=== PATIENT | male | born 1985 | race Caucasian/White ===

== ENCOUNTER 2016-12-05 01:50 | Inpatient (IN) | payer BC, OTHER ==
[~2016-12-05] VITALS: Ht 180.3 cm; Wt 61.2 kg
[~2016-12-05 01:50] MED LIST: OMEP40CA37 PO
[2016-12-05 02:45] VITALS: BP 111/65
--- NOTE | 2016-12-05 02:45 | NUR ---
ADMISSION Patient is a 31-year old, male, admitted and escorted by [facility] at 0236 to unit. Patient lives in an apartment by himself in [place]. Skin check done, no open skin noted. No edema noted. Pt is ambulatory with steady gait. Pt stands 5'11" and weighs 135 pounds per standing scale. Vital signs are as follows: BP-111/65, T-97.5, P-94, RR-18 and SPO2 on RA=97%. Patient is AAOx4 and with no anxiety noted at this time. Lung sounds clear bilaterally upon auscultation. No cough noted and bowel sounds are present on all quadrants. PERRLA and pupils are 1 mm upon visual check. Pt reports being allergic to Alcohol, on Regular Diet and is Full Code. Pt denies any seizure history. Per pt, withdrawal symptoms are nausea and vomiting, runny nose, sweats, chills, tremors, anxiety, depression, goosebumps and restless legs. Substance history as follows: 1) Heroin: Per pt, started since 2012 and since 10/15/2016 was using 1 gm via smoke daily. Last use was 12/04/2016 at 2200, 1 gm smoked. 2) Xanax: Per pt, started at age 18 and for the past 2 weeks was using 4 gms PO daily on average, last use was on 12/04/2016 11 am. 3) Crystal Methamphetamine: Per pt, started since 2015 and since 10/15/2016 was using 0.5 gm via smoke daily. Last use was 12/04/2016 10 pm. 4) Roxycodone: Per pt, since his relapse last 10/15/2016, he was taking about 30 mg daily and stopped on 10/27/2016. 5) THC: Per pt, started at age 15 and since 10/15/2016 has been intermittently smoking "couple of hits here and there". Last use was 12/04/2016 5pm--"a couple of hits". Patient informed PMHx of Anxiety, ADHD (diagnosed last year but does not take meds). Right Torn Lateral Meniscus (2004), Right Foot Fracture (2014) and GERD. No history of suicide. No Suicidal Ideation nor Homicidal Ideation at this time. PCP is Dr. Carrion and Psychiatrist is Dr. Mcnally. Sponsor's name is Aayush Falk. Home medications mentioned were reconciled. Treatment history as follows: 1) [facility] 02/29/2016 to 03/24/2016 2) [facility] 02/20/2016 to 02/29/2016 3) [facility] in [place] 03/2014 Longest period of sobriety was 19 months, from 04/2014 to 11/2015. Patient reports smoking cigarettes about 20 cigarette sticks daily. Oriented patient to room and instructed with the use of the call light, placed within reach. Fall, universal, seizure and safety precautions implemented. Kept patient warm, dry and comfortable. No c/o significant pain at this time All needs met. Patient refused Pneumonia vaccines despite explanation of risks and benefits. Out of season for Flu season. COWS=2, CIWA=1. Will continue to monitor.
[2016-12-05 04:00] VITALS: BP 115/63
[2016-12-05] MEDS ORDERED: QUET50TA PO (04:03)
[2016-12-05] MEDS ORDERED: QUET100T PO (04:03)
[2016-12-05] MEDS ORDERED: MAG HYDROX/AL HYDROX/SIMETH 30 ML LIQUID UDC PO PRN (04:45)
[2016-12-05] MEDS ORDERED: ACETAMINOPHEN 325 MG TABLET PO PRN (04:45)
[2016-12-05] MEDS ORDERED: MIRALAX 17 GM POWD.PACK PO PRN (04:45)
[2016-12-05] MEDS ORDERED: DICYCLOMINE HCL 20 MG TABLET PO PRN (04:45)
[2016-12-05] MEDS ORDERED: BUPRENORPHINE HCL 2 MG TAB.SUBL SL PRN (04:45)
[2016-12-05] MEDS ORDERED: MAGNESIUM HYDROXIDE 30 ML LIQUID UDC PO PRN (04:45)
[2016-12-05] MEDS ORDERED: ONDANSETRON ODT 4 MG TAB.RAPDIS SL PRN (04:45)
[2016-12-05] MEDS ORDERED: IBUPROFEN 400 MG TABLET PO PRN (04:45)
[2016-12-05] MEDS ORDERED: diphenhydrAMINE 50 MG CAPSULE PO PRN (04:45)
[2016-12-05] MEDS ORDERED: LORAZEPAM 2 MG/1 ML VIAL IM PRN (04:45)
[2016-12-05] MEDS ORDERED: LOPERAMIDE HCL 2 MG CAPSULE PO PRN ×2 (04:45)
[2016-12-05] MEDS ORDERED: ONDANSETRON 4 MG/2 ML VIAL IM PRN (04:45)
[2016-12-05] MEDS ORDERED: DIAZEPAM 5 MG TABLET PO PRN (04:45)
[2016-12-05] MEDS ORDERED: HYDROXYZINE PAMOATE 25 MG CAPSULE PO PRN (04:45)
[2016-12-05] MEDS ORDERED: DIAZEPAM 10 MG TABLET PO PRN ×2 (04:45)
--- NOTE | 2016-12-05 07:10 | NUR ---
End of Shift Patient is a 31-year old, male, admitted for Heroin and Xanax Dependence. With PMHx of Anxiety, GERD, ADHD, Right Lateral Torn Meniscus and Right Foot Fracture. Pt with allergy to ETOH, on Regular Diet and is Full Code. Pt is AAOx4, no anxiety noted and with no SOB observed. Pt is ambulatory with steady gait and with intact skin. Fall, universal and safety prec in place. Call light within reach. Kept pt warm, dry and comfortable. All needs met. Latest COWS=2, CIWA=1, haven't slept since admission earlier. Urine not provided yet as pt does not feel the urge to urinate at this time. Endorsed to AM shift nurse for continuity of care.
--- NOTE | 2016-12-05 07:37 | NUR ---
BEGINNING OF SHIFT Patient endorsement report received from sports fitness and wellness director nurse, all pertinent information discussed. Patient with admitting Dx: opiate/bzo Dependence Patient admitted on 12/05/2016 and currently with no ongoing taper will be under observation. Patient slept for 0 hours, with last ciwa score of: 1 and last cow score of: 2. Patient received no PRNs during sports fitness and wellness director. Pending urine drug screen. Fall and seizure precautions observed at all times. Patient received awake, alert and oriented x4, educated regarding plan of care for the day with good verbal understanding. will continue to monitor closely. safety measures in place. call light with in reach.
[2016-12-05 08:04] LABS: THYROID STIMULATING HORMONE 2.742 mIU/mL (0.358-3.740)
[2016-12-05 08:06] LABS: ETHANOL < 3 MG/DL (0-0)
[2016-12-05 08:27] VITALS: BP 102/63
[2016-12-05 08:29] LABS: BASOPHILS # (AUTO) 0.1 K/uL (0.0-8.0); BASOPHILS % (AUTO) 0.5 % (0.0-2.0); EOSINOPHILS # (AUTO) 0.3 K/uL (0.0-0.7); EOSINOPHILS % (AUTO) 2.7 % (0.0-7.0); HEMATOCRIT 48.5 % (36.7-47.1); HEMOGLOBIN 16.3 g/dL (12.5-16.3); LYMPHOCYTES # (AUTO) 3.6 K/uL (20.0-40.0); LYMPHOCYTES % (AUTO) 33.1 % (20.5-51.5); MEAN CORPUSCULAR HEMOGLOBIN 31.2 uug (23.8-33.4); MEAN CORPUSCULAR HGB CONC 34 g/dL (32.5-36.3); MEAN CORPUSCULAR VOLUME 92.4 fL (73.0-96.2); MONOCYTES # (AUTO) 1.1 K/uL (2.0-10.0); NEUTROPHILS # (AUTO) 5.9 K/uL (1.8-8.9); NEUTROPHILS % (AUTO) 53.7 % (38.5-71.5); PLATELET COUNT (AUTO) 179 K/uL (152-348); RED BLOOD CELL COUNT(AUTO) 5.24 MIL/uL (4.06-5.63); RED CELL DISTRIBUTION WIDTH 12.3 % (12.1-16.2)
[2016-12-05] MEDS: MULTIVITAMINS,THERAPEUTIC TABLET PO SCH (08:30)
[2016-12-05 08:35] LABS: ALANINE AMINOTRANSFERASE 27 U/L (16-63); ALBUMIN 4.7 g/dL (3.4-5.0); ALKALINE PHOSPHATASE 66 U/L (50-136); AMYLASE 25 U/L (25-115); ASPARTATE AMINOTRANSFERASE 29 U/L (15-37); BILIRUBIN,TOTAL 0.8 mg/dL (0.2-1.0); CALCIUM 9.6 mg/dL (8.5-10.1); CHLORIDE 97 mmol/L (98-107); CREATININE 1.3 mg/dL (0.6-1.3); GFR 64 mL/min (>60); GLUCOSE 117 mg/dL (74-106); LIPASE 134 U/L (73-393); MAGNESIUM 2.1 mg/dL (1.8-2.4); SODIUM SERUM 140 mmol/L (136-145); TOTAL PROTEIN, SERUM 7.9 g/dL (6.4-8.2); UREA NITROGEN, BLOOD 18 mg/dL (7-18)
[2016-12-05 08:39] LABS: CARBON DIOXIDE 34 mmol/L (21-32)
[2016-12-05] MEDS ORDERED: TUBERCULIN,PURIF.PROT.DERIV. 5 TU/0.1 ML TEST ID ONE (09:00)
[2016-12-05 09:08] LABS: HIV-1 p24 ANTIGEN NON REACTIVE (NONREACTIVE); HIV-1/2 ANTIBODY NON REACTIVE (NONREACTIVE)
[2016-12-05 09:21] LABS: *AMPHETAMINE, URINE POSITIVE (NEGATIVE); *BARBITURATE, URINE NEGATIVE (NEGATIVE); *CANNABINOID, URINE POSITIVE (NEGATIVE); *COCCAINE, URINE NEGATIVE (NEGATIVE); *OPIATE, URINE POSITIVE (NEGATIVE); *PHENCYCLIDINE SCREEN,URINE NEGATIVE (NEGATIVE)
[2016-12-05] MEDS ORDERED: LORAZEPAM 1 MG TABLET PO PRN ×2 (10:00)
[2016-12-05] MEDS: PATIENT MAY USE OWN MED- MD OK PO SCH (12:49)
[2016-12-05 13:39] VITALS: BP 124/72
[2016-12-05 16:00] VITALS: BP 100/53
--- NOTE | 2016-12-05 18:57 | NUR ---
END OF SHIFT Patient with admitting Dx: opiate/BZO dependance and has PRN medications for s/sx of withdrawal continues under close observation. Patient encouraged adequate PO fluid intake as tolerated. 0900 patient presented with heart rate of 108, difficulty sitting still, irritability, and anxiety with cow score of: 5 and ciwa score of: 4. 1300 assessment patient presented with: heart rate of: 97, difficulty sitting still, irritable, and anxiety with cow score of: 4 and ciwa score of: 4. 1700 assessment patient presented with: Heart rate of 96, difficulty sitting still, irritable, and anxiety with cow score of: 4 and ciwa score of: 4. Patient encouraged to attend group therapies/sessions to learn new coping skills to prevent relapse, patient denies SI/HI. Administered no PRNs during shift. Safety measures in place. call light kept with in reach. Patient endorsed to rn night nurse, all pertinent information discussed.
--- NOTE | 2016-12-05 19:55 | NUR ---
START OF SHIFT Received report from day shift nurse. Pt is lying in bed watching TV. He is a 31 yo male admitted to [facility] today for heroin and BZD dependence. Allergies to alcohol, A&O x4 and ambulatory. Pt is full code status and on a regular diet. He has a PMH of anxiety, GERD, ADHD, right torn lateral meniscus, and right foot fracture. On admission he admitted to using heroin 1 gram per day for 7 weeks, roxycodone 30mg per day, Xanax 4mg per day, crystal meth 0.5 grams per day. He reports nausea, body aches, anxiety, and sweating. His skin is moist to the touch. PRN medications available for management of withdrawal symptoms. Fall precautions in place. Bed is down with call light in reach.
[2016-12-05] MEDS: METHOCARBAMOL 750 MG TABLET PO PRN (19:59)
[2016-12-05 20:00] VITALS: BP 103/64
--- NOTE | 2016-12-05 20:00 | NUR ---
PRN Ativan, Robaxin, and Zofran Pt c/o sweating, body aches, anxiety, and nausea. COWS 8 and CIWA 7. PRN Ativan, Robaxin, and Zofran administered.
--- NOTE | 2016-12-05 21:00 | NUR ---
PRN Ativan, Robaxin, and Zofran reassessment PRN Ativan, Robaxin, and Zofran effective. Pt reports feeling more relaxed. Body aches and nausea have subsided. Addendum: 12/05/16 at 2350 by ESTEPHANIA SINGH RN COWS 3 and LITTLEWA 3.
[2016-12-05] MEDS: QUETIAPINE FUMARATE 100 MG TABLET PO PRN (21:44)
--- NOTE | 2016-12-05 21:45 | NUR ---
PRN Seroquel administration Pt c/o inability to sleep. PRN Seroquel administered.
--- NOTE | 2016-12-05 22:45 | NUR ---
PRN Seroquel reassessment PRN Seroquel effective. Pt is lying in bed resting with eyes closed. Respirations even and unlabored. Safety measures in place.
[2016-12-06] VITALS: BP 97/54
[2016-12-06 04:00] VITALS: BP 102/48
--- NOTE | 2016-12-06 07:10 | NUR ---
Start of Shift Report from the night nurse: pt is 31 y/o male here for Opiate dependence r/t Heroin 1gram smoked/d for 7 weeks Roxicodone 30mg PO daily for 2 weeks, Benzo r/t Xanax 4mg Po for 2 weeks, Methamphetamine 0.5mg smoked for 7 weeks, Marijuana intermittently; PRN Ativan and PRN Subutex ordered, no taper ordered. Pt is a full code, regular diet, NKF ro NKA pt states he's allergic to alcohol, fall seizure precautions ordered. HHx: Anxiety, GERD, ADHD, Torn Lateral Minces, Right foot fx 2014, multiple relapses. V/S stable Skin is intact. PRN Ativan, Robaxin, Zofran and Seroquel given last night. No new orders, labs or recommendations. Last CIWA 1. Pt is asleep in room. Will cont. to monitor the pt.
--- NOTE | 2016-12-06 07:20 | NUR ---
END OF SHIFT Report provided to day shift nurse. Pt is lying in bed resting. He is a 31 yo male admitted to [facility] today for heroin and BZD dependence. He is A&O x4 and ambulatory. NKA, full code status, and on a regular diet. He has a PMH of anxiety, GERD, ADHD, right torn lateral meniscus, and right foot fracture. On admission he admitted to using heroin 1 gram per day for 7 weeks, roxycodone 30mg per day, Xanax 4mg per day, crystal meth 0.5 grams per day. He reports nausea, body aches, anxiety, and sweating. His skin is moist to the touch. PRN medications available for management of withdrawal symptoms. PRN Ativan, Robaxin, Zofran, and Seroquel administered. Last COWS 1 and CIWA 1. He drank 500mL and slept 9 hours. Fall precautions in place. Bed is down with call light in reach.
[2016-12-06 08:00] VITALS: BP 99/53
[2016-12-06] MEDS: MULTIVITAMINS,THERAPEUTIC TABLET PO SCH (09:52)
[2016-12-06] MEDS: PATIENT MAY USE OWN MED- MD OK PO SCH (09:52)
--- NOTE | 2016-12-06 10:00 | NUR ---
PRN Medication Administration Pt is in room resting in bed with anxiety, restless legs, pt c/o muscle tension with discomfort and that he has not had a BM in 2 days, COWS 3 CIWA 3; PRN Miralax, Robaxin 750mg and Vistaril 25mg given as ordered. Will reassess in 1H.
[2016-12-06] MEDS: HYDROXYZINE PAMOATE 25 MG CAPSULE PO PRN ×2 (10:01→17:19)
[2016-12-06] MEDS: METHOCARBAMOL 750 MG TABLET PO PRN (10:01)
[2016-12-06 11:09] LABS: HCV AB <0.1 s/co ratio (0.0-0.9); HEPATITIS B CORE AB, IgM Negative (Negative); HEPATITIS B SURFACE AG Negative (Negative)
[2016-12-06 12:00] VITALS: BP 102/62
--- NOTE | 2016-12-06 12:20 | NUR ---
Reassessment Pt is in room resting and watching T.V. no anxiety or restless feet present and pt denies muscle tension; Vistaril and Robaxin are effective. Will cont. to monitor the pt.
[2016-12-06 14:40] LABS: *AMPHETAMINE, URINE POSITIVE (NEGATIVE); *BARBITURATE, URINE NEGATIVE (NEGATIVE); *CANNABINOID, URINE NEGATIVE (NEGATIVE); *COCCAINE, URINE NEGATIVE (NEGATIVE); *OPIATE, URINE POSITIVE (NEGATIVE); *PHENCYCLIDINE SCREEN,URINE NEGATIVE (NEGATIVE)
[2016-12-06 16:00] VITALS: BP 132/73
[2016-12-06] MEDS ORDERED: DIPH50CA37 PO (17:02)
[2016-12-06] MEDS ORDERED: METH-33 PO (17:02)
[2016-12-06] MEDS ORDERED: Ibuprofen PO (17:02)
[2016-12-06] MEDS ORDERED: DICY20TA28 PO (17:02)
[2016-12-06] MEDS: CLONIDINE HCL 0.1 MG TABLET PO PRN (17:20)
--- NOTE | 2016-12-06 17:20 | NUR ---
PRN Medication Administration Pt is in hallway pacing and anxious, I redirected the pt rest on edge of bed and assess V/S with HR 110-118, BP Stable at 132/73; PRN Vistaril 25mg and PRN Clonidine 0.1mg given as ordered. Will reassess in 1H after dinner.
--- NOTE | 2016-12-06 18:20 | NUR ---
Reassessment Pt returned from smoking break and states that his anxiety has decreases, with manual HR 98; Vistaril and Clonidine are effective for anxiety. Will cont. to monitor the pt.
--- NOTE | 2016-12-06 18:52 | NUR ---
Start of Shift Report from the night nurse: pt is 31 y/o male here for Opiate dependence r/t Heroin 1gram smoked/d for 7 weeks Roxicodone 30mg PO daily for 2 weeks, Benzo r/t Xanax 4mg Po for 2 weeks, Methamphetamine 0.5mg smoked for 7 weeks, Marijuana intermittently; PRN Ativan and PRN Subutex ordered, no taper ordered. Pt is a full code, regular diet, NKF or NKA pt states he's allergic to alcohol, fall seizure precautions ordered. HHx: Anxiety, GERD, ADHD, Torn Lateral Minces, Right foot fx 2014, multiple relapses. V/S stable Skin is intact. New orders for pt to get d/c'd tomorrow with UDS results of positive opiates so endorsed to night nurse to get another sample. No PRN Ativan given. PRN Vistaril given twice with last dose at 1720pm & Robaxin 1000am. Pt denies chest pain and no SOB notes. No hallucinations, delusions or suicidal ideations noted. Pt did not attend group therapy during my shift. Last COWS 1 CIWA 1. Addendum: 12/06/16 at 1900 by FELIX ARAGON RN ERROR END OF SHIFT.
--- NOTE | 2016-12-06 19:00 | NUR ---
End of Shift Report to the night nurse: pt is 31 y/o male here for Opiate dependence r/t Heroin 1gram smoked/d for 7 weeks Roxicodone 30mg PO daily for 2 weeks, Benzo r/t Xanax 4mg Po for 2 weeks, Methamphetamine 0.5mg smoked for 7 weeks, Marijuana intermittently; PRN Ativan and PRN Subutex ordered, no taper ordered. Pt is a full code, regular diet, NKF or NKA pt states he's allergic to alcohol, fall seizure precautions ordered. HHx: Anxiety, GERD, ADHD, Torn Lateral Minces, Right foot fx 2014, multiple relapses. V/S stable Skin is intact. New orders for pt to get d/c'd tomorrow with UDS results of positive opiates so endorsed to night nurse to get another sample. No PRN Ativan given. PRN Vistaril given twice with last dose at 1720pm & Robaxin 1000am. Pt denies chest pain and no SOB notes. No hallucinations, delusions or suicidal ideations noted. Pt did not attend group therapy during my shift. Last COWS 1 CIWA 1.
--- NOTE | 2016-12-06 19:55 | NUR ---
START OF SHIFT 312 Received report from day shift nurse. Pt is in his room resting. He is a 31 yo male admitted to [facility] on 12/05 for heroin and BZD dependence. He is A&O x4 and ambulatory. Allergic to alcohol, full code status and on a regular diet. He has a PMH of anxiety, GERD, ADHD, right torn lateral meniscus, and right foot fracture. On admission he admitted to using heroin 1 gram per day for 7 weeks, roxycodone 30mg per day, Xanax 4mg per day, crystal meth 0.5 grams per day. He reports feeling anxious and restless. Minimal other s/s withdrawal. PRN medications available for management of withdrawal symptoms and he is scheduled for discharge tomorrow. Fall precautions in place. Bed is down with call light in reach.
[2016-12-06 20:00] VITALS: BP 128/68
[2016-12-06] MEDS ORDERED: HYDROXYZINE PAMOATE 25 MG CAPSULE PO ONE (20:30)
[2016-12-06] MEDS ORDERED: HYDROXYZINE PAMOATE 25 MG CAPSULE PO PRN (20:30)
[2016-12-06] MEDS: QUETIAPINE FUMARATE 100 MG TABLET PO PRN (21:01)
--- NOTE | 2016-12-06 21:02 | NUR ---
MD Communication/One time Vistaril Pt reports continued anxiety. Contacted Dr. Jaquez. Orders received and carried out for one time vistaril. Addendum: 12/07/16 at 0154 by ESTEPHANIA SINGH RN Pt. reported inability to sleep. DOMINIK Fairchild administered.
--- NOTE | 2016-12-06 22:02 | NUR ---
One time Vistaril and PRN Seroquel reassessment Pt reports feeling somewhat more relaxed but has not yet fallen asleep. No new medications requested. Encouraged relaxation.
[2016-12-06 23:04] LABS: *AMPHETAMINE, URINE POSITIVE (NEGATIVE); *BARBITURATE, URINE NEGATIVE (NEGATIVE); *CANNABINOID, URINE NEGATIVE (NEGATIVE); *COCCAINE, URINE NEGATIVE (NEGATIVE); *OPIATE, URINE POSITIVE (NEGATIVE); *PHENCYCLIDINE SCREEN,URINE NEGATIVE (NEGATIVE)
[2016-12-07] VITALS: BP 124/73
[2016-12-07] MEDS: METHOCARBAMOL 750 MG TABLET PO PRN (00:27)
[2016-12-07] MEDS: CLONIDINE HCL 0.1 MG TABLET PO PRN (00:28)
--- NOTE | 2016-12-07 00:30 | NUR ---
PRN Clonidine, Robaxin, and Benadryl Pt reports he has been unable to sleep. He is anxious and has body aches.B/P 124/71 and HR 114. COWS 5 and CIWA 4. PRN Clonidine, Robaxin, and Benadryl administered.
[2016-12-07 01:25] VITALS: BP 112/64
--- NOTE | 2016-12-07 01:30 | NUR ---
PRN Clonidine, Robaxin, and Benadryl reassessment PRN Clonidine, Robaxin, and Benadryl effective. Pt is lying in bed resting with eyes closed. Vitals rechecked. B/P 112/64 and HR 68.
--- NOTE | 2016-12-07 04:00 | NUR ---
0400 Vital signs refused. COWS and CIWA deferred. Pt refused to be woken for 0400 vitals. Respirations even and unlabored. Bed is down with call light in reach. COWS and CIWA are ordered Q4HWA.
--- NOTE | 2016-12-07 07:10 | NUR ---
Start of Shift Report from the night nurse: pt is 31 y/o male here for Opiate dependence r/t Heroin 1gram smoked/d for 7 weeks Roxicodone 30mg PO daily for 2 weeks, Benzo r/t Xanax 4mg Po for 2 weeks, Methamphetamine 0.5mg smoked for 7 weeks, Marijuana intermittently; PRN Ativan and PRN Subutex ordered, no taper ordered. Pt is a full code, regular diet, NKF ro NKA pt states he's allergic to alcohol, fall seizure precautions ordered. HHx: Anxiety, GERD, ADHD, Torn Lateral Minces, Right foot fx 2014, multiple relapses. V/S stable Skin is intact. PRN Vistaril, Robaxin, Benadryl and Clonidine given last night. Pt is to be d/c'd home today with last urine obtained last night has evidence of opiates present. Last COWS 2 CIWA 1. Pt is awake in room. Will cont. to monitor the pt.
--- NOTE | 2016-12-07 07:15 | NUR ---
END OF SHIFT Report provided to day shift nurse. Pt is lying in bed resting. He is a 31 yo male admitted to [facility] on 12/05 for heroin and BZD dependence. He is A&O x4 and ambulatory. Allergic to alcohol, full code status and on a regular diet. He has a PMH of anxiety, GERD, ADHD, right torn lateral meniscus, and right foot fracture. On admission he admitted to using heroin 1 gram per day for 7 weeks, roxycodone 30mg per day, Xanax 4mg per day, crystal meth 0.5 grams per day. Pt is ordered PRN medications only and is scheduled for discharge today. Pt had anxiety and difficulty falling asleep. PRN Seroquel, Clonidine, Robaxin, Benadryl, and one time Vistaril administered. Last COWS 2 and CIWA 1. He drank 1096mL and slept for 6 hours. Fall precautions in place. Bed is down with call light in reach.
[2016-12-07] MEDS: MULTIVITAMINS,THERAPEUTIC TABLET PO SCH (08:55)
[2016-12-07] MEDS: PATIENT MAY USE OWN MED- MD OK PO SCH (08:55)
--- NOTE | 2016-12-07 09:08 | NUR ---
Discharge Pt is A&O x 4, ambulatory independently. Features symmetrical, PERRLA 3mm, no dizziness, N/V or LEMUS present. Pt denies chest pain. No SOB present. V/S stable. Skin is intact. No w/d s/sx noted. Pt is given his belongings, d/c summary packed, home medications, and written prescription. Pt is chaperoned to lobby with a tech to the [employer] transportation with destination to home as planned.
== END 2016-12-07 09:08 | disposition home or self-care (01) | DRG 895 ==
LOC: SRC 01:50
PROVIDERS: ADMIT Internal Medicine; ATTEND Internal Medicine
PROC: HZ2ZZZZ Detoxification Services for Substance Abuse Treatment (ICD-10-PCS; principal; 2016-12-05)
PROC: HZ31ZZZ Individual Counseling for Substance Abuse Treatment, Behavioral (ICD-10-PCS; 2016-12-06)
DX: F11.23 Opioid dependence with withdrawal (principal); E87.3 Alkalosis; F15.20 Other stimulant dependence, uncomplicated; E86.0 Dehydration; Z81.3 Family history of other psychoactive substance abuse and dependence; G47.00 Insomnia, unspecified; F17.210 Nicotine dependence, cigarettes, uncomplicated; F12.10 Cannabis abuse, uncomplicated; F41.9 Anxiety disorder, unspecified; F90.9 Attention-deficit hyperactivity disorder, unspecified type; F39 Unspecified mood [affective] disorder; K21.9 Gastro-esophageal reflux disease without esophagitis; D72.823 Leukemoid reaction; Z79.899 Other long term (current) drug therapy
CPT/HCPCS: 36415; 80307; 80324; 80346; 80349; 80361; 83690; 83735; 84443; 85025; 86580; 86592; 86705; 86803; 87340; 87806; A4663; G6040-TC; Q0162; Q0163

== ENCOUNTER 2017-01-04 19:26 | Inpatient (IN) | payer BC, OTHER ==
[~2017-01-04] VITALS: Ht 180.3 cm; Wt 64.0 kg
[~2017-01-04 19:26] MED LIST changes: +DICY20TA28 PO; +DIPH50CA37 PO; +Ibuprofen PO; +METH-33 PO; +QUET100T PO
[2017-01-05 01:12] LABS: *AMPHETAMINE, URINE POSITIVE (NEGATIVE); *BARBITURATE, URINE NEGATIVE (NEGATIVE); *CANNABINOID, URINE NEGATIVE (NEGATIVE); *COCCAINE, URINE NEGATIVE (NEGATIVE); *OPIATE, URINE POSITIVE (NEGATIVE); *PHENCYCLIDINE SCREEN,URINE NEGATIVE (NEGATIVE)
[2017-01-05 01:17] VITALS: BP 113/81
--- NOTE | 2017-01-05 01:17 | NUR ---
Pre-Admission Note: Patient assessed in intake office at 01:17 on 01/05/2017. Patient is ambulatory with steady gait, stable, A&OX4, speech is clear. Patient states that he is here to safely detox from heroin and methamphetamine. Pt reports smoking 1gm heroin and 1gm methamphetamine daily for one month, after discharging from [facility] the first week in 12/2016. Patient states that last use was on 01/04/17. VS: 113/81, 106, 98.1, 16, 96% Spo2 on RA. Patient reports 3/10 in right ribs pain at this time, r/t fall. Patient reports NKDA/NKFA. Patient instructed on unit protocol of vitals Q4H and COWS/CIWA assessments. Patient verbalized understanding and agreement. Patient also instructed on policy regarding destruction of any controlled substances/prescriptions brought to facility, and handling of all medications. Patient verbalized understanding and agreement. Will complete admission assessment when patient is brought up to unit.
--- NOTE | 2017-01-05 01:27 | NUR ---
ADMISSION NOTE: NEW ADMISSION IS A 31 YO MALE ON THE [facility] FLOOR AT 01:27 ON 01/05/17; PRE-ADMISSION ASSESSMENT COMPLETED IN INTAKE OFFICE. UDS SPECIMEN COLLECTED IN INTAKE, RESULTED POSITIVE FOR OPIATES AND AMPHETAMINES. VS: 113/81, 106, 98.1, 16, 96% SPO2 ON RA. COWS IS 3: INCREASED HR AND RESTLESSNESS. HEIGHT IS 5'11" AND WEIGHT BY BED SCALE IS 141 LBS. PT REPORTS NKDA/NKFA. PT REPORTS PCP IS DR CORCORAN AND PSYCHIATRIST IS DR BELL. PT ADMITTED UNDER THE CARE OF DR CRYSTAL. PT REPORTS THE FOLLOWING SUBSTANCE USE: HEROIN: PT REPORTS SMOKING 1GM DAILY FOR ONE MONTH CURRENTLY. PT REPORTS FIRST USING HEROIN 4 YEARS AGO. LAST USE WAS 0.5GM AT 23:00 ON 01/04/17. METHAMPHETAMINE: PT REPORTS SMOKING 1GM DAILY FOR ONE MONTH CURRENTLY. PT REPORTS FIRST USING METHAMPHETAMINE ONE YEAR AGO. LAST USE WAS 0.5GM AT 12:00 ON 01/04/17. XANAX: PT REPORTS TAKING 1MG XANAX 4-5 TIMES IN THE PAST MONTH. PT REPORTS FIRST TAKING XANAX 13 YEARS AGO. LAST USE WAS 1MG TWO WEEKS AGO. PT REPORTS SMOKING 20 CIGARETTES DAILY. WRITTEN SMOKING CESSATION EDUCATION PROVIDED. PT VERBALIZES UNDERSTANDING. PT REPORTS ADMISSION TO TREATMENT/DETOX: [facility] IN DECEMBER 2016 FOR ONE WEEK; [facility] IN MARCH 2016 FOR ONE MONTH; [facility] IN FEBRUARY 2016 FOR ONE WEEK; [facility] IN MARCH 2014 FOR ONE WEEK. PT REPORTS PMHX OF LEFT RIB INJURY (CURRENT) R/T FALL, ANXIETY, ADHD, GERD, TORN RIGHT LATERAL MENISCUS (2004), RIGHT FOOT FX (2014). HOME MEDICATIONS HAVE BEEN RECONCILED: PT REPORTS TAKING SEROQUEL 100MG HS AND OMEPRAZOLE 40MG QAM BUT DID NOT BRING RX BOTTLES. PT IS AMBULATORY WITH STEADY GAIT. A&OX4. SKIN ASSESSMENT: INTACT. PT DENIES CURRENT OR HX OF SI/HI. LUNGS ARE CTA THROUGHOUT, RESPIRATIONS ARE EVEN AND UNLABORED BUT SHALLOW D/T INJURY TO LEFT RIBS. PT DENIES COUGH; LUNGS CTA. HEART SOUNDS REGULAR. BOWEL SOUNDS ACTIVE IN ALL QUADRANTS; PT REPORTS CONSTIPATION AND LAST BM OVER 3 DAYS PRIOR TO ADMISSION. ABDOMEN IS SOFT, NON-DISTENDED, NON-TENDER.
[2017-01-05] MEDS ORDERED: MIRALAX 17 GM POWD.PACK PO PRN (01:30)
[2017-01-05] MEDS ORDERED: ONDANSETRON ODT 4 MG TAB.RAPDIS SL PRN (01:30)
[2017-01-05] MEDS ORDERED: MAG HYDROX/AL HYDROX/SIMETH 30 ML LIQUID UDC PO PRN (01:30)
[2017-01-05] MEDS ORDERED: diphenhydrAMINE 50 MG CAPSULE PO PRN (01:30)
[2017-01-05] MEDS ORDERED: DICYCLOMINE HCL 20 MG TABLET PO PRN (01:30)
[2017-01-05] MEDS ORDERED: ONDANSETRON 4 MG/2 ML VIAL IM PRN (01:30)
[2017-01-05] MEDS ORDERED: MAGNESIUM HYDROXIDE 30 ML LIQUID UDC PO PRN (01:30)
[2017-01-05] MEDS ORDERED: ACETAMINOPHEN 325 MG TABLET PO PRN (01:30)
[2017-01-05] MEDS ORDERED: LOPERAMIDE HCL 2 MG CAPSULE PO PRN ×2 (01:30)
[2017-01-05] MEDS ORDERED: TRAZODONE 50 MG TABLET PO ONE (02:00)
[2017-01-05 02:07] LABS: BASOPHILS # (AUTO) 0.1 K/uL (0.0-8.0); BASOPHILS % (AUTO) 0.9 % (0.0-2.0); EOSINOPHILS # (AUTO) 0.1 K/uL (0.0-0.7); EOSINOPHILS % (AUTO) 1.8 % (0.0-7.0); HEMATOCRIT 43.3 % (40-50); HEMOGLOBIN 14.8 G/DL (14.0-18.0); LYMPHOCYTES # (AUTO) 1.7 K/UL (0.8-4.8); LYMPHOCYTES % (AUTO) 24.1 % (20.5-51.5); MEAN CORPUSCULAR HEMOGLOBIN 30.4 UUG (27.0-31.0); MEAN CORPUSCULAR HGB CONC 34 g/dL (32.0-37.0); MEAN CORPUSCULAR VOLUME 89.1 FL (82.0-92.0); MONOCYTES # (AUTO) 0.8 K/UL (0.1-1.30); MONOCYTES % (AUTO) 11.4 % (0.0-11.0); NEUTROPHILS # (AUTO) 4.2 K/UL (1.8-8.9); NEUTROPHILS % (AUTO) 61.8 % (38.5-71.5); PLATELET COUNT (AUTO) 228 K/UL (150-450); RED BLOOD CELL COUNT(AUTO) 4.86 MIL/UL (4.7-6.1); WHITE BLOOD COUNT (AUTO) 6.9 K/UL (4.0-11.2)
[2017-01-05 02:16] LABS: ALANINE AMINOTRANSFERASE 24 U/L (16-63); ALKALINE PHOSPHATASE 76 U/L (50-136); AMYLASE 27 U/L (25-115); ASPARTATE AMINOTRANSFERASE 21 U/L (15-37); BILIRUBIN,TOTAL 0.4 mg/dL (0.2-1.0); CARBON DIOXIDE 32 mmol/L (21-32); CHLORIDE 101 mmol/L (98-107); CREATININE 0.9 mg/dL (0.6-1.3); GLUCOSE 92 mg/dL (74-106); LIPASE 66 U/L (73-393); POTASSIUM 3.9 mmol/L (3.5-5.1); TOTAL PROTEIN, SERUM 7.6 g/dL (6.4-8.2); UREA NITROGEN, BLOOD 9 mg/dL (7-18)
[2017-01-05 02:27] LABS: THYROID STIMULATING HORMONE 1.785 mIU/mL (0.358-3.740)
[2017-01-05 02:34] LABS: ETHANOL < 3 MG/DL (0-0)
--- NOTE | 2017-01-05 02:40 | NUR ---
Trazodone ONCE: Patient complains of inability to sleep. Administered Trazodone ONCE as ordered. Will continue to monitor.
[2017-01-05] MEDS ORDERED: IBUPROFEN 400 MG TABLET ONE (02:54)
[2017-01-05] MEDS: IBUPROFEN 400 MG TABLET PO PRN ×2 (03:35→17:38)
--- NOTE | 2017-01-05 03:35 | NUR ---
PRN Motrin: Patient complains of left sided rib pain. Patient rates pain 8/10. Administered PRN Motrin as ordered. Will continue to monitor.
[2017-01-05 04:00] VITALS: BP 123/78
--- NOTE | 2017-01-05 04:00 | NUR ---
COWS Deferred: Ordered 04:00 COWS deferred for sleep. V/S stable. All safety precautions are in place. Will continue to monitor. Addendum: 01/05/17 at 0446 by SHU LARRY RN Amended: Links added.
--- NOTE | 2017-01-05 04:35 | NUR ---
PRN Reassessment: Patient is in bed with eyes closed. Respirations are even and unlabored. No s/s of acute distress noted. PRN Motrin effective. AEB patient's ability to rest. All safety precautions are in place. Will continue to monitor. Addendum: 01/05/17 at 0726 by SHU LARRY RN Trazodone ONCE not effective. Patient slept 2 hours this shift. Endorsed continuation of home medication Seroquel 100mg HS to day shift nurse.
--- NOTE | 2017-01-05 07:26 | NUR ---
End of Shift Note: Pt is a 31 yo male admitted to [facility] last night for medically-supervised withdrawal from opiates and methamphetamine. Pt reports PMHx: anxiety, left-sided rib injury r/t recent fall, ADHD, GERD, torn right lateral meniscus (2004), right foot fx (2014). Pt is a full code. Pt reports NKDA/NKFA. Pt is on a regular diet; no pork or shellfish. Pt reports smoking 1gm heroin and 1gm methamphetamine daily for one month. PRN Motrin was given for rib pain, which was effective; and PRN Trazodone was given for inability to sleep, which was not effective. Last COWS=3 at 02:04. V/S stable throughout shift, with elevated HR of 106 at 01:17 and 96 at 04:00. Total fluid intake this shift: 890 ml; output: urine x 1 and BM x 0. Pt currently in bed and slept 2 hours this shift. Pt endorsed to day shift nurse.
[2017-01-05 08:00] VITALS: BP 109/62
--- NOTE | 2017-01-05 08:00 | NUR ---
START OF SHIFT Pt 31 y/o male admitted for opioid dependence. Pt received in room with eyes closed resting, but easily arousable to name. Pt alert and oriented to name, place, and time. Perrla. Skin warm and slightly moist to touch. Respirations even and unlabored. It was reported luis tpt slept for 2 hours last night. Bed on lowest position with siderails x 2 up for safety. Call light within reach. No distress noted at this time.
[2017-01-05] MEDS ORDERED: TUBERCULIN,PURIF.PROT.DERIV. 5 TU/0.1 ML TEST ID ONE (09:00)
[2017-01-05] MEDS: METHOCARBAMOL 750 MG TABLET PO PRN ×2 (09:46→17:38)
--- NOTE | 2017-01-05 10:00 | NUR ---
PRN Pt states he is constipated. Miralax powder po prn per MD order given and tolerated well.
--- NOTE | 2017-01-05 11:00 | NUR ---
PRN MACEY Pt states pain is still uncomfortable. Dr. Jaquez aware with new orders for lidocaine 5% patch q 24 hours , noted and carried out.
[2017-01-05] MEDS: LIDOCAINE 5% PATCH TD SCH (11:06)
[2017-01-05 12:00] VITALS: BP 111/72
--- NOTE | 2017-01-05 12:00 | NUR ---
PRN Pt with report of 8 /10 pain of left ribs to staff. Attempted to offer motrin po prn per MD order, but pt was observed on bed with eyes closed resting, but easily arousable to name.
[2017-01-05 16:00] VITALS: BP 124/79
--- NOTE | 2017-01-05 17:50 | NUR ---
PRN Pt states left ribs ache 10/10. Robaxin po prn per MD order given and tolerated well. Ibuprofen po prn per MD order given and tolerated well.
[2017-01-05] MEDS: BUPRENORPHINE HCL 2 MG TAB.SUBL SL PRN ×2 (17:53→21:58)
--- NOTE | 2017-01-05 17:56 | NUR ---
PRN Pt with cows=13, expressing chills, extreme body aches, observed yawning, and is fidgety. Subutex 4mg sl prn per MD order given and tolerated well.
[2017-01-05] MEDS ORDERED: MAGNESIUM CITRATE 296 ML BOTTLE PO ONE (18:00)
--- NOTE | 2017-01-05 18:15 | NUR ---
END OF SHIFT Pt 31 y/o male admitted for opioid dependence. Pt alert and oriented to name, place, and time. Perrla. Skin warm and slightly moist to touch. Respirations even and unlabored. Bilateral hand tremors noted. Pt isolative to room for the whole day. Pt did not attend group activity today. Pt medication compliant and tolerated well. No ASE noted. Pt was seen by Dr. Jaquez today. Bed on lowest position with side rails x2 up for safety. Call light within reach. No distress noted at this time.
[2017-01-05] MEDS: HYDROXYZINE PAMOATE 25 MG CAPSULE PO PRN (18:29)
[2017-01-05 20:00] VITALS: BP 124/85
--- NOTE | 2017-01-05 20:00 | NUR ---
Start of Shift Note: Report received from day shift nurse. Pt is a 31 Y/O male admitted on 01/05/17 for medically-supervised withdrawal from opiates and methamphetamine. Pt reports smoking 1gm heroin and 1gm methamphetamine daily for one month. Pt is not yet on a scheduled taper; PRN Subutex is available. Pt received with last COWS=13, and PRN's Subutex, Miralax, Mag Citrate, Robaxin, and Motrin were given during day shift. Pt reports NKDA/NKFA. Pt is a full code. Pt is on a regular diet; no pork or shellfish. Pt reports PMHx: anxiety, left-sided rib injury r/t recent fall, ADHD, GERD, torn right lateral meniscus (2004), right foot fx (2014). Pt received in room, and reports diaphoresis, chills, myalgia, stomach cramps, restlessness, tremor, and anxiety. Pupils 5mm. Bed is in low position and locked, side rails up x2, call light within reach. Will continue to monitor.
--- NOTE | 2017-01-05 21:10 | NUR ---
PRN Tylenol: Patient complains of rib pain. Patient rates pain 5/10. Administered PRN Tylenol as ordered. Will continue to monitor.
[2017-01-05] MEDS: QUETIAPINE FUMARATE 100 MG TABLET PO SCH (21:58)
--- NOTE | 2017-01-05 21:59 | NUR ---
PRN Subutex 4mg: Patient complains of increased anxiety, diaphoresis, chills, restlessness, myalgia, stomach cramps. Pt noted with bilateral hand tremor, pupils 5mm. COWS is 15. Administered PRN Subutex 4mg SL as ordered. Will continue to monitor.
--- NOTE | 2017-01-05 22:10 | NUR ---
PRN Reassessment: Patient reports that he is still experiencing left-sided rib pain. PRN Tylenol not effective. Will administer PRN Subutex when next dose available.
--- NOTE | 2017-01-05 22:30 | NUR ---
PRN Reassessment: Patient reports decrease in anxiety, diaphoresis, chills, restlessness, myalgia, and stomach cramps. COWS decreased from 15 to 7 thirty minutes after PRN Subutex 4mg SL administration.
[2017-01-06] VITALS: BP 114/65
--- NOTE | 2017-01-06 | NUR ---
Pain: Patient reports 05/16 rib pain on left side. Offered patient Toradol IM but states that he is afraid of needles. Addendum: 01/06/17 at 0145 by SHU LARRY RN Amended: Links added. Addendum: 01/06/17 at 0648 by SHU LARRY RN Toradol IM ONCE not administered d/t patient refusal
--- NOTE | 2017-01-06 00:33 | NUR ---
PRN Milk of Mag: Patient complains of constipation not relieved by Miralax and Mag Citrate. Administered PRN Milk of Mag as ordered. Will continue to monitor.
[2017-01-06 04:00] VITALS: BP 115/71
--- NOTE | 2017-01-06 04:00 | NUR ---
COWS Deferred: COWS assessment is deferred for sleep. V/S stable. Will continue to monitor. Addendum: 01/06/17 at 0605 by SHU LARRY RN Amended: Links added.
[2017-01-06] MEDS ORDERED: KETOROLAC TROMETHAMINE 30 MG INJ IM ONE (05:00)
--- NOTE | 2017-01-06 07:08 | NUR ---
Start of Shift Endorsement received from nightshift nurse. Pt is a 31 y/o male admitted for Heroin and methamphetamine dependence. PT has not been placed on a taper at this time. Pt's symptoms will be managed by PRN medications until farther evaluation by dr. Jaquez. Pt has received PNR subutex, Tylenol and Milk of Magnesium. Pt is moderately withdrawing at this time AEB COWS 8. Pt reports sleeping 5 hours. Pt complains of bruised ribs on the left side. PT is alert and oriented x4. Pt is in STABLE condition at this time. Remains compliant with medication and diet regimen. All needs have been met, All safety measures in place per hospital policy. Bed in lowest position, side rails up x2, call-light within reach. Will continue to monitor
--- NOTE | 2017-01-06 07:18 | NUR ---
End of Shift Note: Pt is a 31 Y/O male re-admitted to [facility] on 01/05/17 for medically-supervised withdrawal from opiates and methamphetamine. Pt reports PMHx: anxiety, ADHD, GERD, torn right lateral meniscus (2004), right foot fx (2014). Full code, NKDA/NKFA, regular diet with no pork or shellfish. Pt has left-sided rib injury r/t recent fall, and PRN Tylenol was given for pain, which was not effective. Pt reports smoking 1gm heroin and 1gm methamphetamine daily for one month, after discharging from [facility] on 12/07/16. PRN Subutex was given for COWS=15. Last COWS=8 at 00:00. V/S stable throughout shift, with elevated HR of 106 at 20:00 and 109 at 00:00. Total fluid intake this shift: 951 ml; output: urine x 2 and BM x 0 and PRN Milk of Mag was given, not effective. Pt currently in bed and slept 5 hours this shift. Pt endorsed to day shift nurse.
[2017-01-06 08:00] VITALS: BP 118/73
[2017-01-06] MEDS: LIDOCAINE 5% PATCH TD SCH (09:08)
[2017-01-06] MEDS ORDERED: BUPRENORPHINE HCL 2 MG TAB.SUBL SL SCH (10:00)
[2017-01-06] MEDS ORDERED: MAGNESIUM CITRATE 296 ML BOTTLE PO ONE (10:30)
[2017-01-06] MEDS ORDERED: BISACODYL 5 MG TABLET.DR PO ONE (10:30)
[2017-01-06] MEDS: PANTOPRAZOLE SODIUM 40 MG TABLET.DR PO SCH (10:42)
[2017-01-06 12:00] VITALS: BP 128/76
[2017-01-06 13:11] LABS: HEPATITIS B SURFACE AG Negative (Negative)
[2017-01-06] MEDS: BUPRENORPHINE HCL 2 MG TAB.SUBL SL SCH ×2 (15:00→21:20)
--- NOTE | 2017-01-06 15:13 | NUR ---
PRN Medications Administered PRN Clonidine, Robaxin and Vistaril for chill, 5/10 muscle aches, and moderate anxiety of 5/10.
[2017-01-06] MEDS: HYDROXYZINE PAMOATE 25 MG CAPSULE PO PRN (15:38)
[2017-01-06] MEDS: CLONIDINE HCL 0.1 MG TABLET PO PRN (15:38)
[2017-01-06] MEDS: METHOCARBAMOL 750 MG TABLET PO PRN (15:38)
--- NOTE | 2017-01-06 15:45 | NUR ---
Medication Re-assessment Pt reports relieve from anxiety, chills and muscle aches. Rates anxiety 2/10 and body aches 2/10.
[2017-01-06 16:00] VITALS: BP 120/68
[2017-01-06] MEDS ORDERED: OLANZAPINE ZYDIS 5 MG TAB.RAPDIS PO ONE (17:30)
--- NOTE | 2017-01-06 18:40 | NUR ---
End of Shift Endorsement given to nightshift nurse. Pt is a 31 y/o male admitted for Heroin and methamphetamine dependence. PT has been placed on a Subutex taper that has yet to be initiated. Pt is moderately withdrawing AEB COWS 6 at 1600. PT has received PRN Vistaril, Clonidine and Robaxin. Pt will be farther evaluated tonight to determine whether to continue the taper. Pt received Magnesium Citrate and Dulcolax for constipation, medication was effective, pt reports 3 BMs. PT participated in groups and activities. Encouraged pt to drink more fluids, Educated pt on diet regimen. Intake: 4828ml, Void x5, BM x3 . Pt complains of bruised ribs on the left side. PT is alert and oriented x4. Pt is in STABLE condition at this time. Remains compliant with medication and diet regimen. All needs have been met, All safety measures in place per hospital policy. Bed in lowest position, side rails up x2, call-light within reach. Will continue to monitor
[2017-01-06 20:00] VITALS: BP 118/69
--- NOTE | 2017-01-06 20:00 | NUR ---
Start of Shift Note: Report received from day shift nurse. Pt is a 31M admitted on 01/05/17 for medically-supervised withdrawal from opiates and methamphetamine, and reported smoking 1gm heroin and 1gm methamphetamine daily for one month. Pt is on a 2-day Subutex taper, not yet initiated. Pt received with last COWS=5, and PRN's clonidine, Robaxin, and Vistaril were given during day shift. Pt reports NKDA/NKFA, full code status, and is on a regular diet with no pork or shellfish. Pt reports PMHx: anxiety, left-sided rib injury d/t recent fall, ADHD, GERD, torn right lateral meniscus (2004), right foot fx (2014). Pt received in room, and reports diaphoresis, chills, restlessness, stomach cramps, and anxiety. Bed is in low position and locked, side rails up x2, call light within reach. Will continue to monitor.
[2017-01-06] MEDS: QUETIAPINE FUMARATE 25 MG TABLET PO PRN (21:21)
[2017-01-06] MEDS: QUETIAPINE FUMARATE 100 MG TABLET PO SCH (21:21)
--- NOTE | 2017-01-06 21:24 | NUR ---
PRN Seroquel and PRN Bentyl: Patient complains of increased anxiety. Administered PRN Seroquel 50mg as ordered. Patient complains of stomach cramps. Administered PRN Bentyl as ordered. Will continue to monitor.
--- NOTE | 2017-01-06 22:25 | NUR ---
PRN Reassessment: Patient reports that he is no longer experiencing stomach cramps and that his anxiety is now at a manageable level. PRN Bentyl and PRN Seroquel effective. Will continue to monitor.
[2017-01-07] VITALS: BP 106/66
--- NOTE | 2017-01-07 | NUR ---
COWS Deferred: COWS assessment is deferred for sleep. V/S stable. All safety precautions are in place. Will continue to monitor. Addendum: 01/07/17 at 0216 by SHU LARRY RN Amended: Links added.
[2017-01-07 04:00] VITALS: BP 111/71
--- NOTE | 2017-01-07 04:00 | NUR ---
COWS Deferred: COWS deferred for sleep, V/S stable, all safety precautions in place. Addendum: 01/07/17 at 0505 by SHU LARRY RN Amended: Links added.
--- NOTE | 2017-01-07 06:59 | NUR ---
End of Shift Note: Pt is a 31M re-admitted to [facility] on 01/05/17 for medically-supervised withdrawal from heroin and methamphetamine. Pt reports PMHx: GERD, torn right lateral meniscus (2004), right foot fx (2014), anxiety, ADHD. Full code status, reports NKDA/NKFA, and is on a regular diet with no pork or shellfish. Pt reports smoking 1gm heroin and 1gm methamphetamine daily for one month. Pt is to start day two of a 3-day Subutex taper. Scheduled medication regime effectively managed s/s of withdrawal this shift, in addition to PRN Bentyl for stomach cramps and PRN Seroquel for anxiety. Last COWS=10 at 20:00. V/S stable throughout shift with tachycardia. Total fluid intake this shift: 2182 ml; output: urine x 4 and BM x 0. Pt is currently in bed and slept 4 hours this shift. All needs have been attended and met. Pt endorsed to day shift nurse.
--- NOTE | 2017-01-07 07:00 | NUR ---
Start of Shift Notes: Received patient in his/her room. Alert and oriented x 4. Able to make needs known. Respirations even and unlabored. No SOB noted. Skin warm and dry to touch. Abdomen soft and non-distended. BS (+) in all 4 quadrants. No complains of N/V/D or constipation noted. Voids independently. Ambulatory ad augustine with steady gait. Patient is a 31 year old male admitted for opiate/meth and BZO dependence who was placed on a Subutex taper as ordered. No adverse reactions noted. Has past medical hx of injury to left ribs related to a fall. anxiety, ADHD, rorn right lateral meniscus, GERD. PRN Bentyl and Seroquel were given during the night. Slept for 4 hours. NKA. FULL CODE. Regular diet. On fall and seizure precautions. Educated patient on the current plan of care and the current medication regimen. Will encourage oral fluid intake and encouraged group participation to learn new skills to prevent relapse.
[2017-01-07] MEDS: PANTOPRAZOLE SODIUM 40 MG TABLET.DR PO SCH (07:03)
[2017-01-07 08:00] VITALS: BP 127/83
[2017-01-07] MEDS: IBUPROFEN 400 MG TABLET PO PRN (08:13)
[2017-01-07] MEDS: METHOCARBAMOL 750 MG TABLET PO PRN ×2 (08:14→21:20)
[2017-01-07] MEDS: HYDROXYZINE PAMOATE 25 MG CAPSULE PO PRN ×2 (08:14→21:19)
--- NOTE | 2017-01-07 08:14 | NUR ---
PRN Vistaril, Motrin 400 mg PO and Robaxin 750 mg PO given: Patient noted with complain of 9/10 pain to left rib. Non-pharmacological interventions were provided but did not help. Medicated patient with Robaxin 750 mg PO and Motrin 400 mg PO as ordered. Also noted with complain of anxiety, IL 105 while at rest. Encouraged patient to verbalize concerns and feelings but did not help. Medicated patient with Vistaril 50 mg PO as ordered. Will monitor for effectiveness.
[2017-01-07] MEDS: LIDOCAINE 5% PATCH TD SCH (08:18)
[2017-01-07] MEDS ORDERED: BUPRENORPHINE HCL 2 MG TAB.SUBL SL SCH ×4 (09:00→15:00)
[2017-01-07 12:00] VITALS: BP 129/78
--- NOTE | 2017-01-07 14:33 | NUR ---
Therapist reminded client of group times. Client will not be attending because his ribs hurt.
--- NOTE | 2017-01-07 15:59 | NUR ---
Subutex at 1500 PO not administered: Patient verbalizes that he feels "OK" at this time. Patient declined to take Subutex at 1500 dose and states that he will wait until next dose at 2100. Patient education provided. Will continue to monitor closely.
[2017-01-07 16:00] VITALS: BP 125/69
--- NOTE | 2017-01-07 18:48 | NUR ---
End of Shift Notes: Patient is a 31 year old male admitted for opiate/methamphetamine and bzo dependence who was placed on a modified 3-day Subutex taper as ordered. No adverse reactions noted. Patient is tolerating taper. He is on his 2nd day of his taper. NKA. FULL CODE. Regular diet. On fall and seizure precautions. Prior to admission, patient was using 1 gram of Heroin a day, 1 gram of methamphetamine and 1 mg of Xanax. VS monitored closely. No significant abnormalities noted. Withdrawal symptoms were closely monitored. Initial COWS 9, patient presented with anxiety, fine tremors, muscle aches and pains. Last COWS 5. Medicated patient with Vistaril 50, Motrin 400 mg and Robaxin 750 at 0814 with help after 1 hour. Compliant with care and treatment. Seen by MD Barry today with NNO. Per patient, Subutex has been helping him with his withdrawal symptoms. Encouraged to attend group and activities. All needs met and attended. Will continue to monitor.
--- NOTE | 2017-01-07 19:20 | NUR ---
Start of Shift Patient Received. Patient is in his room, awake, alert and verbally responsive. Breathing even and non labored. No Signs of pain or discomfort noted. Patient is a 31 year old male, admitted on 01/05/17 under the care of Dr. Jaquez. Patient was placed on a modified 3 day Subutex taper. Patient verbalizes no known allergies, full code, following a regular diet, skin noted intact, placed on fall and seizure precautions. Past medical history of injury to left ribs related to fall, anxiety, ADHD, and Gerd. Per endorsement, patient refused 1500 dose of Subutex. Patient was given PRN Robaxin, Motrin, and Vistaril. All needs attended to promptly. Will continue plan of care as ordered.
[2017-01-07 20:20] VITALS: BP 117/77
[2017-01-07] MEDS: QUETIAPINE FUMARATE 25 MG TABLET PO PRN (21:19)
[2017-01-07] MEDS: QUETIAPINE FUMARATE 100 MG TABLET PO SCH (21:20)
[2017-01-07] MEDS: CLONIDINE HCL 0.1 MG TABLET PO PRN (21:20)
--- NOTE | 2017-01-07 21:20 | NUR ---
PRN Medication Administration Patient verbalizing increased anxiety, chills, muscle spasms in lower back, agitation due to patients misunderstanding of Subutex dose. Patient was given PRN Seroquel, Clonidine, Vistaril and Robaxin for increased signs and symptoms of withdrawal. Will continue to monitor accordingly.
--- NOTE | 2017-01-07 22:30 | NUR ---
PRN Medication Reassessment Patient noted in bed awake and watching TV. Breathing even and non labored. Patient able to verbalize "the medication helped. Im going to try and go to sleep. Hopefully I sleep through the night." PRN Seroquel, Clonidine, Vistaril, and Robaxin noted to be effective. Will continue to monitor.
[2017-01-08 00:50] VITALS: BP 111/52
[2017-01-08 04:03] VITALS: BP 115/62
[2017-01-08] MEDS: PANTOPRAZOLE SODIUM 40 MG TABLET.DR PO SCH (06:40)
--- NOTE | 2017-01-08 06:57 | NUR ---
End of Shift Patient is in bed sleeping. Breathing even and non labored. No signs of pain or discomfort noted. Patient is a 31 year old male, admitted on 01/05/17 under the care of Dr. Jaquez. Patient was placed on a modified 3 day Subutex taper. Patient verbalizes no known allergies, full code, following a regular diet, skin noted intact, placed on fall and seizure precautions. Past medical history of injury to left ribs related to fall, anxiety, ADHD, and Gerd. Patient was given PRN Seroquel, Robaxin, Vistaril, and Clonidine with medications all noted to be effective. All needs attended to promptly. Will continue plan of care as ordered.
--- NOTE | 2017-01-08 07:50 | NUR ---
START OF SHIFT NOTE Received report from night nurse, 31 year old male, admitted on 01/05/17. Pt cont with modified 3 day Subutex taper. Patient verbalizes no known allergies, full code, regular diet, skin noted intact, placed on fall and seizure precautions. Pt reported PMH of injury to left ribs related to fall, anxiety, ADHD, and GERD. Per endorsement,received PRN Robaxin, Vistaril, Seroquel, Benadryl effective per night nurse. Last COWS-1, slept for 6 hours. Received resting in his room, responsive to verbal and tactile stimuli. No s/s of distress noted. Skin warm and dry to touch. All safety measures in place, Call light within reach. Will cont to monitor.
[2017-01-08 08:00] VITALS: BP 120/65
[2017-01-08] MEDS: LIDOCAINE 5% PATCH TD SCH (08:40)
[2017-01-08] MEDS ORDERED: BUPRENORPHINE HCL 2 MG TAB.SUBL SL SCH ×2 (09:00)
[2017-01-08] MEDS: METHOCARBAMOL 750 MG TABLET PO PRN ×2 (09:24→20:49)
[2017-01-08] MEDS: HYDROXYZINE PAMOATE 25 MG CAPSULE PO PRN ×3 (09:24→20:49)
[2017-01-08] MEDS: CLONIDINE HCL 0.1 MG TABLET PO PRN ×2 (09:25→20:49)
--- NOTE | 2017-01-08 09:25 | NUR ---
PRN MEDS Pt noted with complain of 4/10 pain to left rib, anxiety, Chills. Non-pharmacological interventions were provided but did not help. Administered PRN Robaxin 750 mg PO, Vistaril 50mg PO and Clonidine 0.1mg PO as ordered. Will cont to monitor.
--- NOTE | 2017-01-08 10:25 | NUR ---
REASSESSMENT Upon assessment Pt reports relieve from anxiety, chills and muscle cramps subside. Will cont to monitor.
[2017-01-08 12:00] VITALS: BP 114/75
[2017-01-08] MEDS ORDERED: QUET25TA PO (13:01)
[2017-01-08] MEDS ORDERED: HYDR-3895 PO (13:01)
[2017-01-08] MEDS ORDERED: CLON0.1T14 PO (13:01)
[2017-01-08] MEDS ORDERED: LIDO30AD10 TD (13:01)
[2017-01-08 16:00] VITALS: BP 126/72
[2017-01-08] MEDS: IBUPROFEN 400 MG TABLET PO PRN ×2 (17:37→20:49)
--- NOTE | 2017-01-08 17:37 | NUR ---
PRN MEDS Pt was c/o of 4/10 pain to left rib, anxiety, Non-pharmacological interventions were provided but did not help. Administered PRN Motrin 400mg 1 tab PO, Vistaril 50mg PO as ordered. Will cont to monitor.
[2017-01-08 17:45] LABS: *AMPHETAMINE, URINE POSITIVE (NEGATIVE); *BARBITURATE, URINE NEGATIVE (NEGATIVE); *CANNABINOID, URINE NEGATIVE (NEGATIVE); *COCCAINE, URINE NEGATIVE (NEGATIVE); *OPIATE, URINE NEGATIVE (NEGATIVE); *PHENCYCLIDINE SCREEN,URINE NEGATIVE (NEGATIVE)
--- NOTE | 2017-01-08 18:37 | NUR ---
REASSESSMENT Pt reported medication effective anxiety subside and pain to 2. Will cont to monitor.
--- NOTE | 2017-01-08 18:54 | NUR ---
END OF SHIFT NOTE Gave repot to night nurse, 31 year old male, admitted on 01/05/17 for heroin/Meth dependence. Pt completed his modified 3 day Subutex taper tolerated well. Patient verbalizes no known allergies, full code, regular diet, skin noted intact, placed on fall and seizure precautions. Pt reported PMH of injury to left ribs related to fall, anxiety, ADHD, and GERD. Pt attended groups and activities. Pt received PRN medications noted to be effective. Vital signs remained WNL. Pt scheduled for discharge in AM. Last COWS-3. All needs attended. Safety measures in place, Call light within reach. Pt endorsed to night nurse in stable condition.
--- NOTE | 2017-01-08 19:10 | NUR ---
Start of Shift Patient Received. Patient is in his room, awake, alert and verbally responsive. Breathing even and non labored. No Signs of pain or discomfort noted. Patient is a 31 year old male, admitted on 01/05/17 under the care of Dr. Jaquez. Patient has completed a modified 3 day Subutex taper. Patient verbalizes no known allergies, full code, following a regular diet, skin noted intact, placed on fall and seizure precautions. Past medical history of injury to left ribs related to fall, anxiety, ADHD, and Gerd. Per endorsement, Patient is set for discharge tomorrow 01/09/17. Patient was given PRN Robaxin, Clonidine, Vistaril X2, and Motrin. Patient noted with COWS of 3 at 1600. All needs attended to promptly. Will continue plan of care as ordered.
[2017-01-08 20:45] VITALS: BP 118/73
[2017-01-08] MEDS: QUETIAPINE FUMARATE 100 MG TABLET PO SCH (20:49)
[2017-01-08] MEDS: QUETIAPINE FUMARATE 25 MG TABLET PO PRN (20:49)
--- NOTE | 2017-01-08 20:49 | NUR ---
PRN Medication Administration Patient is verbalizing increased anxiety, chills, muscle spasms in lower back, and pain due to a headache. All non-pharmacological interventions not effective. Patient was given PRN Seroquel, Clonidine, Vistaril and Robaxin for increased signs and symptoms of withdrawal. Will continue to monitor accordingly.
[2017-01-09 00:25] VITALS: BP 112/69
[2017-01-09 04:00] VITALS: BP 109/65
[2017-01-09] MEDS: PANTOPRAZOLE SODIUM 40 MG TABLET.DR PO SCH (06:41)
--- NOTE | 2017-01-09 07:05 | NUR ---
Start of Shift Endorsement received from nightshift nurse. Pt is a 31 y/o male admitted for Heroin and methamphetamine dependence. . Pt is not withdrawing at this time AEB COWS 0 at 0400. PT has been scheduled to be discharged today, 01/09/17. All discharge teaching and documentation has been completed. Pt reports sleeping 6 hours. Pt received PRN Seroquel, Vistaril, Motrin and Robaxin. VS WNL. Full Code. PT is alert and oriented x4. Pt is in STABLE condition at this time. Remains compliant with medication and diet regimen. All needs have been met, All safety measures in place per hospital policy. Bed in lowest position, side rails up x2, call-light within reach. Will continue to monitor
--- NOTE | 2017-01-09 07:10 | NUR ---
End of Shift Patient is in bed sleeping. Breathing even and non labored. No signs of pain or discomfort noted. Patient is a 31 year old male, admitted on 01/05/17 under the care of Dr. Jaquez. Patient was placed on a modified 3 day Subutex taper. Patient verbalizes no known allergies, full code, following a regular diet, skin noted intact, placed on fall and seizure precautions. Past medical history of injury to left ribs related to fall, anxiety, ADHD, and Gerd. Patient was given PRN Seroquel, Robaxin, Motrin, Vistaril, and Clonidine. All needs attended to promptly. Will continue plan of care as ordered.
[2017-01-09 08:00] VITALS: BP 121/61
[2017-01-09] MEDS: LIDOCAINE 5% PATCH TD SCH (08:42)
[2017-01-09] MEDS ORDERED: BUPRENORPHINE HCL 2 MG TAB.SUBL SL SCH (09:00)
--- NOTE | 2017-01-09 10:30 | NUR ---
PRN Medications Administered PRN Vistaril and Robaxin for reported 5/10 pain and moderate anxiety by the pt.
[2017-01-09] MEDS: HYDROXYZINE PAMOATE 25 MG CAPSULE PO PRN ×2 (10:33→21:33)
[2017-01-09] MEDS: METHOCARBAMOL 750 MG TABLET PO PRN ×2 (10:33→21:33)
--- NOTE | 2017-01-09 11:08 | NUR ---
Medication Re-assessment Pt reports relief from anxiety and report 2/10 pain at this time. Medication was effective.
[2017-01-09 12:00] VITALS: BP 96/63
[2017-01-09] MEDS: CLONIDINE HCL 0.1 MG TABLET PO PRN ×2 (14:41→21:33)
--- NOTE | 2017-01-09 14:41 | NUR ---
PRN Clonidine Administered PRN Clonidine for chills and sweat reported and observable.
[2017-01-09 16:00] VITALS: BP 125/77
--- NOTE | 2017-01-09 17:20 | NUR ---
Therapist reminded client of group times. Client didn't go to groups today because he "wasn't supposed to be here today anyway."
--- NOTE | 2017-01-09 18:58 | NUR ---
End of Shift Endorsement given to nightshift nurse. Pt is a 31 y/o male admitted for Heroin and methamphetamine dependence. PT has been scheduled to be discharged on 01/10/17. All discharge education has been completed, all documentation has been signed and dated. Pt is midly withdrawing AEB COWS 3 at 1600. PT has received PRN Vistaril, Clonidine and Robaxin. . PT participated in groups and activities. Encouraged pt to drink more fluids, Educated pt on diet regimen. Intake: 4828ml, Void x5, BM x3 . PT is alert and oriented x4. Pt is in STABLE condition at this time. Remains compliant with medication and diet regimen. All needs have been met, All safety measures in place per hospital policy. Bed in lowest position, side rails up x2, call-light within reach. Will continue to monitor
--- NOTE | 2017-01-09 19:10 | NUR ---
Start of Shift Patient Received. Patient is in his room, awake, alert and verbally responsive. Breathing even and non labored. No Signs of pain or discomfort noted. Patient is a 31 year old male, admitted on 01/05/17 under the care of Dr. Jaquez. Patient has completed a modified 3 day Subutex taper. Patient verbalizes no known allergies, full code, following a regular diet, skin noted intact, placed on fall and seizure precautions. Past medical history of injury to left ribs related to fall, anxiety, ADHD, and Gerd. Per endorsement, Patients orders for discharge changed to tomorrow 01/10/17 due to placement availability. Patient was given PRN Robaxin, Clonidine, and Vistaril. All needs attended to promptly. Will continue plan of care as ordered.
[2017-01-09 20:40] VITALS: BP 132/77
[2017-01-09] MEDS: QUETIAPINE FUMARATE 100 MG TABLET PO SCH (21:32)
[2017-01-09] MEDS: QUETIAPINE FUMARATE 25 MG TABLET PO PRN (21:33)
--- NOTE | 2017-01-09 21:35 | NUR ---
PRN Medication Administration Patient is verbalizing increased anxiety, muscle spasms in lower back, and inability of falling asleep. All non-pharmacological interventions not effective. Patient was given PRN Seroquel, Clonidine, Vistaril and Robaxin, and Benadryl. All needs attended to promptly. Will continue to monitor accordingly.
--- NOTE | 2017-01-09 22:40 | NUR ---
PRN Medication Reassessment Patient is noted in bed watching TV. Patient is able to verbalize Im slowly falling asleep. The medication really helped. PRN Seroquel, Clonidine, Vistaril and Robaxin, and Benadryl noted to be effective. All needs attended to promptly. Will continue to monitor.
[2017-01-10 00:49] VITALS: BP 115/60
[2017-01-10 04:10] VITALS: BP 109/61
[2017-01-10] MEDS: PANTOPRAZOLE SODIUM 40 MG TABLET.DR PO SCH (06:35)
--- NOTE | 2017-01-10 07:15 | NUR ---
End of Shift Patient is in bed sleeping. Breathing even and non labored. No signs of pain or discomfort noted. Patient is a 31 year old male, admitted on 01/05/17 under the care of Dr. Jaquez. Patient was placed on a modified 3 day Subutex taper. Patient verbalizes no known allergies, full code, following a regular diet, skin noted intact, placed on fall and seizure precautions. Past medical history of injury to left ribs related to fall, anxiety, ADHD, and Gerd. Patient was given PRN Seroquel, Robaxin, Vistaril, Clonidine, and Benadryl. Patient slept a total of 6 hours. All needs attended to promptly. Will continue plan of care as ordered.
--- NOTE | 2017-01-10 07:30 | NUR ---
start of shift note: received pt from shift engineer nurse, pt is in stable condition at this time, pt with constant rib pain d/t incident before admission. pt is admitted to [facility] for opiate/meth/benzo withdrawal/dependence. pts last cows was 6 d/t rib pain. pt slept 6 hrs. pt is set to discharge today will assist pt in discharging and will continue to monitor pt for any changes.
[2017-01-10] MEDS: LIDOCAINE 5% PATCH TD SCH (08:47)
[2017-01-10 09:02] VITALS: BP 106/70
--- NOTE | 2017-01-10 09:37 | NUR ---
discharge note: pt left the unit in stable condition, no withdrawal symptoms noted. pt refused all medications this morning. pt teaching administered and pt verbalized understanding. pt's V/S WNL. all personal belongings were returned and pt will be transferred to [facility] via private car
== END 2017-01-10 09:37 | DRG 895 ==
LOC: SRC 01-05 00:38
PROVIDERS: ADMIT Internal Medicine; ATTEND Internal Medicine
PROC: HZ2ZZZZ Detoxification Services for Substance Abuse Treatment (ICD-10-PCS; principal; 2017-01-05)
PROC: HZ31ZZZ Individual Counseling for Substance Abuse Treatment, Behavioral (ICD-10-PCS; 2017-01-06)
DX: F11.23 Opioid dependence with withdrawal (principal); F19.20 Other psychoactive substance dependence, uncomplicated; F41.1 Generalized anxiety disorder; Z59.0 Homelessness; Z79.899 Other long term (current) drug therapy; K21.9 Gastro-esophageal reflux disease without esophagitis; F17.210 Nicotine dependence, cigarettes, uncomplicated; G47.00 Insomnia, unspecified; F90.9 Attention-deficit hyperactivity disorder, unspecified type; K59.00 Constipation, unspecified; F15.10 Other stimulant abuse, uncomplicated; F12.90 Cannabis use, unspecified, uncomplicated
CPT/HCPCS: 36415; 80307; 80324; 80361; 83690; 83735; 84443; 85025; 86580; 86592; 86705; 86803; 87340; 87806; A4663; G0480; Q0163

== ENCOUNTER 2017-09-27 19:26 | Inpatient (IN) | payer OTHER ==
[~2017-09-27] VITALS: Ht 180.3 cm; Wt 68.0 kg
--- NOTE | 2017-09-27 02:50 | NUR ---
PRN Maalox Reassessment Medication effective. Pt expresses reduction in heartburn. No s/s ASE noted at this time. Respirations even and unlabored. Will continue to monitor. Addendum: 09/28/17 at 0405 by ARMANDO ELKINS LVN incorrect date
[~2017-09-27 19:26] MED LIST changes: +CLON0.1T14 PO; +HYDR-3895 PO; +LIDO30AD10 TD; +QUET25TA PO
--- NOTE | 2017-09-27 23:30 | NUR ---
Pre admission note Pt seen in intake office. Pt appears to be intoxicated but in stable condition. V/S WNL. Respirations even and unlabored. Policies on medication disposal explained to and understood by patient. Will admit to unit. Will continue to monitor.
[2017-09-28 00:03] VITALS: BP 136/78
--- NOTE | 2017-09-28 00:06 | NUR ---
Admission note Pt is a 31 yo male, A+Ox4, presenting to [facility] for Opiate/Benzo withdrawal. Pt is 5'11" in height and 150 LBS in weight. Pt has NKA, is on Full code status, and Regular diet (No pork, No seafood). Pt has medical HX of Anxiety, Depression, and Right knee meniscus SX. Pt has Family HX of Substance abuse from Mother and Father. Pt has no primary care provider. Pt has been using Heroin (inhalation) for 7 years (3 weeks currently), has reach a level of 0.5gm/daily, and last dose was 0.5gm on 09/27/17 @1700. Pt has been taking Valium PO for 3 weeks, has reached a level of "10mg when available", and last dose was 10mg on 09/26/17. Pt has been taking Klonopin PO for 3 weeks, has reached a level of "2mg when available", and last dose was 2mg on 09/26/17. Pt has been taking Xanax PO for 3 weeks, has reached a level of "2mg when available", and last dose was 2mg on 09/26/17. Pt is taking home medications as follows: Omeprazole 40mg QD and Seroquel 150mg-200mg QHS. Pt has HX of previous detox/rehab @ [facility] for 7 days in 01/2017 followed by 90 days sober living. Pt continued sobriety from 01/2017-08/2017. Pt has been a cigarette smoker for 13 years and has reached a level of 20-40/daily. Pt appears intoxicated but in stable condition. V/S WNL. Respirations even and unlabored. Will continue to monitor.
[2017-09-28] MEDS ORDERED: MAGNESIUM HYDROXIDE 30 ML LIQUID UDC PO PRN (01:00)
[2017-09-28] MEDS ORDERED: ACETAMINOPHEN 325 MG TABLET PO PRN (01:00)
[2017-09-28] MEDS ORDERED: BUPRENORPHINE HCL 2 MG TAB.SUBL SL PRN (01:00)
[2017-09-28] MEDS ORDERED: IBUPROFEN 600 MG TABLET PO PRN (01:00)
[2017-09-28] MEDS ORDERED: DICYCLOMINE HCL 20 MG TABLET PO PRN (01:00)
[2017-09-28] MEDS ORDERED: ONDANSETRON ODT 4 MG TAB.RAPDIS SL PRN (01:00)
[2017-09-28] MEDS ORDERED: MIRALAX 17 GM POWD.PACK PO PRN (01:00)
[2017-09-28] MEDS ORDERED: diphenhydrAMINE 50 MG CAPSULE PO PRN (01:00)
[2017-09-28] MEDS ORDERED: ONDANSETRON 4 MG/2 ML VIAL IM PRN (01:00)
[2017-09-28] MEDS ORDERED: LOPERAMIDE HCL 2 MG CAPSULE PO PRN ×2 (01:00)
[2017-09-28 01:22] LABS: *AMPHETAMINE, URINE NEGATIVE (NEGATIVE); *BARBITURATE, URINE NEGATIVE (NEGATIVE); *CANNABINOID, URINE POSITIVE (NEGATIVE); *COCCAINE, URINE NEGATIVE (NEGATIVE); *OPIATE, URINE POSITIVE (NEGATIVE); *PHENCYCLIDINE SCREEN,URINE NEGATIVE (NEGATIVE)
[2017-09-28] MEDS: MAG HYDROX/AL HYDROX/SIMETH 30 ML LIQUID UDC PO PRN ×2 (01:55→23:02)
--- NOTE | 2017-09-28 01:55 | NUR ---
PRN Maalox Pt c/o heartburn and requested for PRN Maalox. Medication given and tolerated well. Will reassess within 1 HR. Will continue to monitor.
[2017-09-28 02:40] LABS: BASOPHILS % (AUTO) 0.3 % (0.0-2.0); EOSINOPHILS # (AUTO) 0.1 K/uL (0.0-0.7); EOSINOPHILS % (AUTO) 0.7 % (0.0-7.0); HEMATOCRIT 43.2 % (36.7-47.1); HEMOGLOBIN 15.3 g/dL (12.5-16.3); LYMPHOCYTES # (AUTO) 1.5 K/uL (20.0-40.0); LYMPHOCYTES % (AUTO) 19.7 % (20.5-51.5); MEAN CORPUSCULAR HEMOGLOBIN 31.9 uug (23.8-33.4); MEAN CORPUSCULAR HGB CONC 35 g/dL (32.5-36.3); MEAN CORPUSCULAR VOLUME 90.1 fL (73.0-96.2); MONOCYTES # (AUTO) 0.6 K/uL (2.0-10.0); MONOCYTES % (AUTO) 8.3 % (0.0-11.0); NEUTROPHILS # (AUTO) 5.2 K/uL (1.8-8.9); PLATELET COUNT (AUTO) 216 K/uL (152-348); RED BLOOD CELL COUNT(AUTO) 4.79 MIL/uL (4.06-5.63); WHITE BLOOD COUNT (AUTO) 7.4 K/uL (3.6-10.2)
--- NOTE | 2017-09-28 02:50 | NUR ---
PRN Maalox Reassessment Medication effective. Pt expresses reduction in heartburn. No s/s ASE noted at this time. Respirations even and unlabored. Will continue to monitor.
[2017-09-28 02:51] LABS: ETHANOL < 3 MG/DL (0-0)
[2017-09-28 02:56] LABS: ALANINE AMINOTRANSFERASE 16 U/L (16-63); ALKALINE PHOSPHATASE 60 U/L (50-136); AMYLASE 23 U/L (25-115); ASPARTATE AMINOTRANSFERASE 13 U/L (15-37); BILIRUBIN,TOTAL 0.6 mg/dL (0.2-1.0); CARBON DIOXIDE 34 mmol/L (21-32); CHLORIDE 95 mmol/L (98-107); GLUCOSE 99 mg/dL (74-106); LIPASE 75 U/L (73-393); MAGNESIUM 1.9 mg/dL (1.8-2.4); POTASSIUM 3.2 mmol/L (3.5-5.1); TOTAL PROTEIN, SERUM 7.3 g/dL (6.4-8.2); UREA NITROGEN, BLOOD 8 mg/dL (7-18)
[2017-09-28 03:07] LABS: THYROID STIMULATING HORMONE 0.476 mIU/mL (0.358-3.740)
[2017-09-28 04:35] VITALS: BP 130/75
--- NOTE | 2017-09-28 07:00 | NUR ---
End of shift note Newly admitted patient. Pt noted to be intoxicated upon admission with V/S WNL throughout shift. Pt noted with anxiety and agitation during shift. Pt was given PRN Maalox for heartburn @0155. Pt slept for a total of 2 HRS. Last COWS: 7 @0400. V/S WNL throughout shift. Respirations even and unlabored. Will endorse to day shift nurse.
[2017-09-28 08:00] VITALS: BP 103/52
[2017-09-28] MEDS ORDERED: POTASSIUM CHLORIDE 20 MEQ TAB.PRT.SR PO ONE ×2 (09:00→11:00)
[2017-09-28] MEDS ORDERED: Medication Not On Formulary EA (Omeprazole 40 MG) PO PRN (09:15)
--- NOTE | 2017-09-28 09:35 | NUR ---
START OF SHIFT Received report from ecology professor nurse. Patient is 31 year old male admitted for medically supervised withdrawal from opiate and benzodiazepines. Patient's lab is positive for marijuana as well. Patient confirmed he used marijuana for a week, last use was yesterday, unable to state how much. Alert and oriented X4. Patient is full code with NKA. On assessment this AM: COWS: 5. Denies SOB, chest pain. Patients vitals signs WNL. Patient reports anxiety, stomach cramps, stuffy nose and body aches. Patient denies nausea, vomiting, diarrhea, tactile disturbances, auditory or visual hallucinations or headache at this time. Last BM reported was 2 days. Potassium level is 3.2, replaced with 40mEQ. Patient has steady gait. Encouraged to attend group meetings today. Will continue to monitor patient.
[2017-09-28] MEDS ORDERED: LORAZEPAM 1 MG TABLET PO PRN ×2 (11:15)
[2017-09-28] MEDS ORDERED: LORAZEPAM 2 MG/1 ML VIAL IM PRN (11:15)
[2017-09-28 12:00] VITALS: BP 109/61
[2017-09-28] MEDS: LORAZEPAM 1 MG TABLET PO SCH ×2 (12:41→20:55)
[2017-09-28] MEDS: PANTOPRAZOLE SODIUM 40 MG TABLET.DR PO PRN (12:55)
--- NOTE | 2017-09-28 12:55 | NUR ---
PRN CLONIDINE, PROTONIX, BENTYL Patient complains of stomach upset, stomach spasm, and anxiety. PRN clonidine, protonix and bentyl. Will continue to monitor patient.
[2017-09-28] MEDS: CLONIDINE HCL 0.1 MG TABLET PO PRN (12:57)
--- NOTE | 2017-09-28 13:55 | NUR ---
REASSESSMENT PRN CLONIDINE, PROTONIX AND BENTYL Patient reports anxiety resolved and stomach cramps mildly resolved.
[2017-09-28] MEDS: GABAPENTIN 300 MG CAPSULE PO SCH ×2 (14:46→20:55)
[2017-09-28 16:00] VITALS: BP 106/51
--- NOTE | 2017-09-28 18:37 | NUR ---
END OF SHIFT Patient is 31 year old male admitted for medically supervised withdrawal from opiate and benzodiazepines. Alert and oriented X4. Patient is full code with NKA. Most recent CIWA: 7 and COWS: 5 . Med compliant with routine meds during this shift. Started Ativan taper today. Denies SOB, chest pain. Patients vitals signs WNL. Patient reports anxiety, stomach cramps, stuffy nose, tremors, and body aches. Patient tolerating meals without n/v, consuming <50%. night warehouse managernight worker will continue to monitor patient. Addendum: 09/28/17 at 1902 by DELVIN MONTOYA RN Patient started on Ativan taper today.
--- NOTE | 2017-09-28 19:18 | NUR ---
Start of shift note Received report from day shift nurse. Pt is a 31 yo male, A+Ox4, presenting to [facility] for Opiate/benzo withdrawal. Pt noted with anxiety, agitation, and restlessness. Pt has HX of Anxiety, depression, and GERD which will be monitored during shift. Pt is on 5 day Ativan taper, tolerated well. Respirations even and unlabored. Will continue to monitor.
[2017-09-28 20:08] VITALS: BP 96/68
--- NOTE | 2017-09-28 23:02 | NUR ---
PRN Maalox Pt c/o heartburn and requested for PRN Maalox. Medication given and tolerated well. Will reassess within 1 HR. Will continue to monitor.
[2017-09-29] VITALS (7 sets, daily range): BP systolic 93–132; BP diastolic 64–75
--- NOTE | 2017-09-29 00:01 | NUR ---
PRN Maalox Reassessment Medication effective. Pt expresses reduction in heartburn. No s/s ASE noted at this time. Respirations even and unlabored. Will continue to monitor.
[2017-09-29] MEDS: QUETIAPINE FUMARATE 200 MG TABLET PO PRN ×2 (00:17→20:46)
--- NOTE | 2017-09-29 00:19 | NUR ---
PRN Seroquel Pt c/o inability to sleep and requested for PRN Seroquel. Medication given and tolerated well. Will reassess within 1 HR. Will continue to monitor.
--- NOTE | 2017-09-29 01:05 | NUR ---
PRN Seroquel Reassessment Medication effective. Pt is resting well in bed. No s/s of ASE noted at this time. Respirations even and unlabored. Will continue to monitor.
--- NOTE | 2017-09-29 06:51 | NUR ---
End of shift note Pt continuously noted with anxiety, restlessness, and agitation. Pt spent majority of time in his room. Pt came out of room periodically to smoke on smoking patio and to get food from kitchen. Pt was given PRN Maalox @2302 for heartburn and PRN Seroquel @0019 for inability to sleep. Pt slept for a total of 6 HRS. Last COWS: 8 and Last CIWA: 9 @0400. V/S WNL during shift. Respirations even and unlabored. Will endorse to day shift nurse.
--- NOTE | 2017-09-29 07:59 | NUR ---
BEGINNING OF SHIFT Patient endorsement report received from security shift manager nurse, all pertinent information discussed. Patient is a 31 year old male with admitting Dx: Opiate/BZO withdrawal. Patient continues under very close observation, patient with ongoing 4 day Ativan taper as ordered, and is scheduled to begin day 2 of taper. Per security shift manager patient with last ciwa score of: 9, and last cow score of: 8. received PRN: Maalox and Seroquel as ordered during security shift manager. slept for 6 hours. Fall and seizure precautions observed at all times. Patient received awake, alert and oriented x4, educated regarding plan of care for the day, and medication regimen with good verbal understanding. will continue to monitor closely. safety measures in place.
[2017-09-29 08:07] LABS: HEPATITIS B SURFACE AG Negative (Negative)
[2017-09-29] MEDS ORDERED: TUBERCULIN,PURIF.PROT.DERIV. 5 TU/0.1 ML TEST ID ONE (09:00)
[2017-09-29] MEDS: GABAPENTIN 300 MG CAPSULE PO SCH ×3 (09:02→20:46)
[2017-09-29] MEDS: LORAZEPAM 1 MG TABLET PO SCH ×3 (09:03→20:46)
--- NOTE | 2017-09-29 10:51 | NUR ---
PRN CLONIDINE Patient presenting with increase, anxiety, and diaphoresis. Provided patient with non pharmacological interventions with no relief. Administered Clonidine 0.1mg PO as ordered, will monitor effectiveness of medication.
[2017-09-29] MEDS: CLONIDINE HCL 0.1 MG TABLET PO PRN (10:52)
--- NOTE | 2017-09-29 11:51 | NUR ---
CLONIDINE REASSESSMENT Patient reports feeling less anxious and agitated, decrease in diaphoresis, will continue to monitor. bp WNL.
[2017-09-29] MEDS ORDERED: BUPRENORPHINE HCL 2 MG TAB.SUBL SL PRN (12:15)
--- NOTE | 2017-09-29 12:55 | NUR ---
therapist prompted client to come to groups today.
--- NOTE | 2017-09-29 18:53 | NUR ---
END OF SHIFT Patient alert and oriented x4, Patient appears disheveled, is unshaven and unkempt. Inability to perform ADLs without prompting, Patient was encouraged to self groom and maintain personal area. Patient has anxious, and worried affect. Mood is depressed, flat and labile. Room appears: with clothes thrown on floor, dirty linens, refuses change. Encouraged to maintain personal area. Patient continues under close observation, placed on 4 day Ativan taper as ordered for withdrawal symptoms, with admitting Dx: bzo/opiate withdrawal. During shift patient presented with: chills, clammy skin, flushed face, restlessness, difficulty sitting still, enlarged pupils, myalgia, joint pain, muscle aches, restless legs, diaphoretic, lacrimation, abdominal cramps, anxiety, and tremors. Initial ciwa score of: 11 and cow score of: 9, last cow score of: 8 and ciwa score of: 9. Received PRN: clonidine during shift, medication effective one hour post administration. Encouraged patient to verbalize feelings. patient was encouraged adequate PO fluid intake as tolerated, patient encouraged to develop coping skills and utilization of non pharmacological interventions. Patient was encouraged to participate in therapy session, refused to participate patient isolative and withdrawn .Encouraged diversional activities to alleviate anxiety. Denies any SI/HI. Safety measures in place. Call light kept with in reach, patient endorsed to fast food shift lead nurse, all pertinent information was discussed.
--- NOTE | 2017-09-29 19:00 | NUR ---
Start of Shift Patient Received. Patient is in his room, awake, alert, and verbally responsive. Breathing even and non labored. Patient continues on a modified 4 day Ativan taper. Per endorsement, Patient is currently receiving an Ativan taper due to refusing Subutex taper. PRN medications available for increased signs and symptoms of Opiate withdrawal. Patient has been noted to be withdrawn to room and non compliant with group meetings or social activities. PRN Clonidine administered with medication noted to be effective. Last noted COWS 8 and CIWA 9. All needs attended to promptly. Will continue to monitor.
[2017-09-29] MEDS: PANTOPRAZOLE SODIUM 40 MG TABLET.DR PO PRN (20:45)
[2017-09-29] MEDS: METHOCARBAMOL 750 MG TABLET PO PRN (20:46)
--- NOTE | 2017-09-29 20:51 | NUR ---
PRN Medication Administration patient is noted withdrawn to room. Patient is noted verbalizing "upset stomach" and increased anxiety, restlessness, agitation, body aches, and complains of inability of falling asleep. PRN Robaxin, Protonix, and Seroquel administered with routine medications. explained to patient that vitals would need to be ran at 0000 and 0400. Patient verbalized "I dont want you to wake me up. I want to get sleep. I dont need to be awake at that time of the night." Risks and Benefits explained. Patient is also requesting for PRN Protonix to be changed to routine and states "I didn't get it today and I normally take it in the morning every day." Will relay to MD. All needs attended to promptly. Will continue to monitor.
--- NOTE | 2017-09-29 21:50 | NUR ---
PRN Medication Reassessment Patient is noted in bed sleeping. Breathing even and non labored. No restlessness or discomfort noted. PRN Robaxin, Seroquel, and Protonix noted to be effective. Will continue to monitor.
--- NOTE | 2017-09-29 21:51 | NUR ---
Start of Shift Patient Received. Patient is in his room, awake, alert, and verbally responsive. Breathing even and non labored. Patient continues on a modified 4 day Ativan taper. Per endorsement, Patient is currently receiving an Ativan taper due to refusing Subutex taper. PRN medications available for increased signs and symptoms of Opiate withdrawal. Patient has been noted to be withdrawn to room and non compliant with group meetings or social activities. PRN Clonidine administered with medication noted to be effective. Last noted COWS 8 and CIWA 9. All needs attended to promptly. Will continue to monitor. Addendum: 09/29/17 at 2152 by ANTONIA PEREZ LVN ENTERED IN ERROR
[2017-09-29] MEDS: MAG HYDROX/AL HYDROX/SIMETH 30 ML LIQUID UDC PO PRN (23:17)
--- NOTE | 2017-09-29 23:25 | NUR ---
PRN Medication Administration Patient is noted awake and verbalizing increase restless legs, anxiety, agitation, increased hot and cold chills, and heart burn. CIWA noted to be 14 and COWS 14. Offered Subutex but patient refused. PRN Ativan 2mg and PRN Mylanta administered. Will continue to monitor.
--- NOTE | 2017-09-30 00:25 | NUR ---
PRN Medication Reassessment Patient is noted in bed sleeping. Breathing even and non labored. No restlessness or discomfort noted. PRN Ativan 2mg noted to be effective. Will continue to monitor.
[2017-09-30 00:44] VITALS: BP 102/60
--- NOTE | 2017-09-30 02:03 | NUR ---
PRN Medication Administration 2324 Patient is noted awake and verbalizing increase restless legs, anxiety, agitation, increased hot and cold chills, and heart burn. CIWA noted to be 14 and COWS 14. Offered Subutex but patient refused. PRN Ativan 2mg and PRN mylanta administered. Will continue to monitor. Addendum: 09/30/17 at 0205 by ANTONIA PEREZ LVN ENTERED IN ERROR
[2017-09-30 04:27] VITALS: BP 103/64
--- NOTE | 2017-09-30 07:07 | NUR ---
End of Shift Patient is noted in bed sleeping. Breathing even non labored. Patient continues on a modified 4 day Ativan taper. Patient is noted to be isolative to room and non compliant with group and social activities. Patient was given PRN Seroquel, Protonix, and Robaxin. Patient was noted to be awake and verbalizing increased anxiety, agitation, restlessness, sweats, and increased heart burn. PRN Ativan 2mg and Mylanta administered. Medications noted to be effective. Patient noted to sleep a total of 6 hours. Last noted COWS 14 and CIWA 14. All needs attended to promptly. Will endorse to continue to monitor.
--- NOTE | 2017-09-30 07:33 | NUR ---
BEGINNING OF SHIFT Patient endorsement report received from can sorter nurse, all pertinent information discussed. Patient is a 31 year old male with admitting Dx: Opiate/BZO withdrawal. Patient continues under very close observation, patient with ongoing 4 day Ativan taper as ordered, and is scheduled to begin day 3 of taper. Per can sorter patient with last ciwa score of: 14, and last cow score of: 14. received PRN: Maalox, seroquel, robaxin, protonix, and ativan 2mg PO as ordered during can sorter. slept for 6 hours. Fall and seizure precautions observed at all times. Patient received awake, alert and oriented x4, educated regarding plan of care for the day, and medication regimen with good verbal understanding. will continue to monitor closely. safety measures in place.
[2017-09-30 08:11] VITALS: BP 123/78
[2017-09-30] MEDS: PANTOPRAZOLE SODIUM 40 MG TABLET.DR PO PRN (08:25)
[2017-09-30] MEDS: LORAZEPAM 1 MG TABLET PO SCH ×2 (08:25→20:09)
[2017-09-30] MEDS: METHOCARBAMOL 750 MG TABLET PO PRN (08:25)
[2017-09-30] MEDS: GABAPENTIN 300 MG CAPSULE PO SCH ×3 (08:25→20:09)
[2017-09-30] MEDS: CLONIDINE HCL 0.1 MG TABLET PO PRN ×3 (08:26→21:45)
--- NOTE | 2017-09-30 08:26 | NUR ---
PRN CLONIDINE/ROBAXIN/PROTONIX Patient presenting with increase, anxiety, and diaphoresis. Provided patient with non pharmacological interventions with no relief. Administered Clonidine 0.1mg PO as ordered, will monitor effectiveness of medication. bp: 123/78 hr: 76. Patient also c/o myalgia 02/13 and GERD. Administered Robaxin as ordered and Protonix as ordered, will monitor effectiveness of medications.
--- NOTE | 2017-09-30 09:26 | NUR ---
CLONIDINE/ROBAXIN/PROTONIX REASSESSMENT Patient reports feeling less anxious, and less agitaed, noted less diaphoretic, medications were effective. will continue to monitor. bp: 120/77. hr: 71
--- NOTE | 2017-09-30 09:58 | NUR ---
therapist went to clients room and encouraged client to get out of bed today and attend all groups. Client reports that he will try to attend. Therapist informed client of the importance of attending groups and taking part in his treatment. Client did not respond.
[2017-09-30 13:52] VITALS: BP 128/82
--- NOTE | 2017-09-30 14:55 | NUR ---
PRN CLONIDINE Patient reports increase in anxiety, patient is restless, noted pacing back and forward, and hangs wringing. provided with non pharmacological interventions with no relief, administered clonidine 0.1mg PO as ordered, will monitor effectiveness. bp: 130/81 hr: 91.
--- NOTE | 2017-09-30 15:55 | NUR ---
CLONIDINE REASSESSMENT Patient noted calm in room, medication effective, reports feeling less anxious, will conitnue to monitor. bp; 122/75
[2017-09-30 16:02] VITALS: BP 122/75
--- NOTE | 2017-09-30 18:37 | NUR ---
END OF SHIFT Patient alert and oriented x4, Patient appears disheveled, is unshaven and unkempt. Inability to perform ADLs without prompting, Patient was encouraged to self groom and maintain personal area. Encouraged maintenance of personal hygiene. Patient has anxious, and worried affect. Mood is depressed, flat and labile. Room appears: with clothes thrown on floor, dirty linens, refuses change. Patient continues under close observation, placed on 4 day Ativan taper as ordered for withdrawal symptoms, with admitting Dx: bzo/opiate withdrawal. During shift patient presented with: chills, clammy skin, flushed face, restlessness, difficulty sitting still, enlarged pupils, myalgia, joint pain, muscle aches, restless legs, diaphoretic, lacrimation, dyspepsia, anxiety, and tremors. Initial ciwa score of: 14 and cow score of: 13, last cow score of: 8 and ciwa score of: 8. Detox medication effective at reducing withdrawal symptoms. Received PRN: clonidine x2, Robaxin and Protonix during shift, medications effective one hour post administration. Encouraged patient to verbalize feelings. patient was encouraged adequate PO fluid intake as tolerated, patient encouraged to develop coping skills and utilization of non pharmacological interventions. Patient was encouraged to participate in therapy session, refused to participate patient isolative and withdrawn, Dr. White and Dr. Lindo are aware.Encouraged diversional activities to alleviate anxiety. Denies any SI/HI. Safety measures in place. Call light kept with in reach, patient endorsed to shiftman nurse, all pertinent information was discussed.
--- NOTE | 2017-09-30 19:45 | NUR ---
Start of Shift Notes Received 31 y/o male px admitted for medically supervised withdrawal from opiate and benzos. Px is placed on 4 day Ativan taper. Px appears disheveled and anxious. Unfinished snacks and drinks noted on top of cabinet and bed side table. Px stated "My anxiety is 8/10 and can I have my Seroquel before 10 PM?" Px also verbalized "They lower my Ativan dose, since then, my anxiety is high, do I have PRN Ativan?" Explained that he is on scheduled taper Ativan and his PRN is finished but he can have Clonidine 0.1 mg as PRN for anxiety. Bed is on lowest position, side rails on up 2x, and call light within reach.
[2017-09-30 20:00] VITALS: BP_SYST 115; BP_SYST 136; BP_DIAS 64; BP_DIAS 77
[2017-09-30] MEDS: QUETIAPINE FUMARATE 200 MG TABLET PO PRN (21:45)
--- NOTE | 2017-09-30 21:45 | NUR ---
PRN meds Seroquel 200 mg/tab, 1 tab and Clonidine 0.1 mg/tab, 1 tab given PO as PRN meds for insomnia. We'll continue to monitor.
[2017-10-01] VITALS: BP 115/77
[2017-10-01 04:00] VITALS: BP 101/69
--- NOTE | 2017-10-01 04:00 | NUR ---
COWS and CIWA deferred CIWA deferred 0400 due to the px is asleep, to assess if the px is awake per doctor's order. We'll continue to monitor.
--- NOTE | 2017-10-01 07:10 | NUR ---
End of Shift Notes During the shift, Px was given Seroquel 200 mg/tab, 1 tab and Clonidine 0.1 mg PO for insomnia. They were effective. Px slept for 7 hours. Px's oral intake is 1 L, voided 2x, BM 1x. At 0630, px is asleep on bed in right side lying position. Last COWS 9 and CIWA 9 at 0000. Bed is on lowest position, side rails on up 2x, and call light within reach. We'll continue to monitor. Px endorsed to AM shift nurse.
--- NOTE | 2017-10-01 07:42 | NUR ---
Start of shift- Received 31 y/o male admitted for medically supervised withdrawal from opiate and benzos. Pt is placed on 4 day Ativan taper, started 09/28/17. Pt asleep at this time but easily arousable to name. Pt appears disheveled and anxious. Unfinished snacks and drinks noted on top of cabinet and bed side table. Last COWS 9, CIWA 9. Pt declines subutex medication. PMH- anxiety, depression, GERD. Pt reports NKA and FULL CODE. All safety measures in place. Bed is on lowest position, side rails on up 2x, and call light within reach. Will continue to closely monitor signs and symptoms of withdrawal
[2017-10-01 08:01] VITALS: BP 104/49
[2017-10-01] MEDS: GABAPENTIN 300 MG CAPSULE PO SCH ×3 (08:13→21:28)
[2017-10-01] MEDS: PANTOPRAZOLE SODIUM 40 MG TABLET.DR PO SCH (08:13)
[2017-10-01] MEDS ORDERED: LORAZEPAM 1 MG TABLET PO SCH (09:00)
[2017-10-01 12:00] VITALS: BP 113/72
[2017-10-01] MEDS ORDERED: DICY20TA28 PO (15:49)
[2017-10-01] MEDS ORDERED: OMEP40CA37 PO (15:49)
[2017-10-01] MEDS ORDERED: IBUP-1955 PO (15:49)
[2017-10-01] MEDS ORDERED: METH-406 PO (15:49)
[2017-10-01] MEDS ORDERED: GABA-534 PO (15:49)
[2017-10-01 16:55] VITALS: BP 127/76
--- NOTE | 2017-10-01 18:42 | NUR ---
End of shift- 31 y/o male admitted for medically supervised withdrawal from opiate and benzos. Pt on 4 day Ativan taper, started 09/28/17. Pt visible on the unit and did not participated in group therapy. Pt anticipated discharge tomorrow. At 1600 last COWS 7, CIWA 8. Pt declines Subutex medication. PMH- anxiety, depression, GERD. Pt reports NKA and FULL CODE. Adequate PO fluid intake 1575, VOID x 4, no BM. All safety measures in place. All safety measures in place. Will endorse to oncoming shift.
--- NOTE | 2017-10-01 20:25 | NUR ---
Start of Shift: A/O x 4 watching Tv while lying on bed c/o anxiety, chills, bone pain and tremors. CIWA 8 CIWA 7. Continue to monitor for safety and falls. Medication compliant and cooperative with staff.
[2017-10-01] MEDS ORDERED: TRAZODONE 50 MG TABLET PO SCH (21:00)
[2017-10-01] MEDS: QUETIAPINE FUMARATE 200 MG TABLET PO PRN (21:28)
[2017-10-01] MEDS: CLONIDINE HCL 0.1 MG TABLET PO PRN (21:28)
[2017-10-01 22:29] VITALS: BP 132/77
--- NOTE | 2017-10-02 00:10 | NUR ---
Deferred V/S ,COW & CIWA per protocol if sleeping
[2017-10-02 04:53] VITALS: BP 132/77
--- NOTE | 2017-10-02 05:10 | NUR ---
Deferred V/S ,COW & CIWA per protocol if sleeping
--- NOTE | 2017-10-02 06:16 | NUR ---
END of Shift: Lying in bed eyes closed rep even and unlab appears resting comfortably. Slept 5 3/4 hours. Denies of any distress. Siderails up, Call light within reach.
--- NOTE | 2017-10-02 07:30 | NUR ---
START OF SHIFT NOTE Received report from night nurse, pt did not receive any PRN'S, slept for 5 hours, last CIWA-8, COWS-7. Received pt alert awake oriented x4. Patient scheduled for discharge today,pt motivated being discharge. Safety measures in place. Will cont to monitor.
[2017-10-02] MEDS: GABAPENTIN 300 MG CAPSULE PO SCH (08:43)
[2017-10-02] MEDS: PANTOPRAZOLE SODIUM 40 MG TABLET.DR PO SCH (08:43)
--- NOTE | 2017-10-02 09:00 | NUR ---
DISCHARGE NOTE Patient has been discharged from [facility] Patient is in Stable condition, VS WNL. Denies suicidal and homicidal ideations at this time. All documentation has been completed, paperwork signed and dated. Pt left with all of his belongings, medications and prescriptions. Pt has been discharged from [facility] on 10/02/17 at 0900. has been Notified.
[2017-10-02 09:36] VITALS: BP 102/62
== END 2017-10-02 09:00 | disposition home or self-care (01) | DRG 895 ==
LOC: SRC 23:14
PROVIDERS: ADMIT Internal Medicine; ATTEND Internal Medicine
PROC: HZ2ZZZZ Detoxification Services for Substance Abuse Treatment (ICD-10-PCS; principal; 2017-09-27)
PROC: HZ31ZZZ Individual Counseling for Substance Abuse Treatment, Behavioral (ICD-10-PCS; 2017-09-29)
DX: F11.23 Opioid dependence with withdrawal (principal); E87.3 Alkalosis; E87.8 Other disorders of electrolyte and fluid balance, not elsewhere classified; E87.1 Hypo-osmolality and hyponatremia; F13.239 Sedative, hypnotic or anxiolytic dependence with withdrawal, unspecified; E86.0 Dehydration; F17.210 Nicotine dependence, cigarettes, uncomplicated; F41.1 Generalized anxiety disorder; G47.00 Insomnia, unspecified; K21.9 Gastro-esophageal reflux disease without esophagitis; E87.6 Hypokalemia; F32.9 Major depressive disorder, single episode, unspecified
CPT/HCPCS: 36415; 80307; 80346; 80349; 80361; 83690; 83735; 84443; 85025; 86580; 86592; 86705; 86803; 87340; 87806; A4663; G0480